=== PATIENT | male | born 1940 | race Caucasian/White ===

== ENCOUNTER 2017-01-27 09:15 | Emergency (ER) | payer MEDICARE, MEDICAID ==
[~2017-01-27] VITALS: Ht 175.3 cm; Wt 79.4 kg
[~2017-01-27 09:15] MED LIST: AMLO5TAB2 PO; ATOR40TA PO; BENA5TAB15 PO; CARB1TAB PO; DONE10TA4 PO; ENTA200T PO; ESCI10TA PO; FENO200C PO; FERR-58 PO; FINA5TAB4 PO; GLIM2TAB2 PO; GLIM4TAB PO; MEMA10TA PO; METF10002 PO; METO100T3 PO; MIRT7.5T10 PO; SITA50TA PO; TOLT4CAP PO; TRIA15CR3 TP; ZOLP5TAB7 PO
[2017-01-27] MEDS ORDERED: TDAP [DIPH/PERTUSSIS/TET] 0.5 ML VIAL IM ONE ×2 (09:37→10:00)
[2017-01-27 12:00] VITALS: BP 196/84
== END 2017-01-27 12:00 | disposition home or self-care (01) ==
LOC: ER 09:17
DX: S01.81XA Laceration without foreign body of other part of head, initial encounter (principal); S01.01XA Laceration without foreign body of scalp, initial encounter; S40.011A Contusion of right shoulder, initial encounter; I10 Essential (primary) hypertension; E11.9 Type 2 diabetes mellitus without complications; I25.10 Atherosclerotic heart disease of native coronary artery without angina pectoris; E78.00 Pure hypercholesterolemia, unspecified; F03.90 Unspecified dementia, unspecified severity, without behavioral disturbance, psychotic disturbance, mood disturbance, and anxiety; F39 Unspecified mood [affective] disorder; N40.0 Benign prostatic hyperplasia without lower urinary tract symptoms; G93.40 Encephalopathy, unspecified; W05.0XXA Fall from non-moving wheelchair, initial encounter; Y93.89 Activity, other specified; Y92.89 Other specified places as the place of occurrence of the external cause; Y99.9 Unspecified external cause status
CPT/HCPCS: 12013; 70450; 73030; 90471; 90715; 99284; A4606; A6402; Z7610

== ENCOUNTER 2017-04-26 11:02 | Inpatient (IN) | payer MEDICARE, MEDICAID ==
[~2017-04-26] VITALS: Ht 172.7 cm; Wt 65.8 kg
--- NOTE | 2017-04-26 11:12 | NUR ---
PT TO ER BED 11. FROM SNF. FOUND IN THE FLOOR. POSIBLE FALL OUT OF HIS WHEEL CHAIR. LAC APPROX 3CM NOTED. NO ACTIVE BLEEDING. HX OF PARKINSONS. UNWITNESSED FALL. NO OTHER OBVIOUS TRAUMA/. STABLE VITALS.
--- NOTE | 2017-04-26 11:13 | NUR ---
DR JACOBS AT BEDSIDE FOR EVAL.
[2017-04-26] MEDS ORDERED: TDAP [DIPH/PERTUSSIS/TET] 0.5 ML VIAL IM ONE ×2 (11:30→11:56)
--- NOTE | 2017-04-26 11:45 | NUR ---
PT TO RADIOLOGY FOR HEAD AND C SPINE CT SCAN VIA [facility].
--- NOTE | 2017-04-26 13:10 | NUR ---
CALLED [facility] FOR BLS TRANSPORT ETA 30 MINUTES
--- NOTE | 2017-04-26 13:45 | NUR ---
DR LALITHA CRAWFORD CALLED FOR DOCTOR REYNALDO, WANTS PATIENT TO BE ADMITTED
--- NOTE | 2017-04-26 13:46 | NUR ---
CANCELLED [facility]PON[facility]
--- NOTE | 2017-04-26 13:50 | NUR ---
PER DR DOTY, PATIENT TO BE ADMITTED TO PANEL
--- NOTE | 2017-04-26 13:56 | NUR ---
PAGED DR DRIVER FOR PANEL
[2017-04-26 13:58] LABS: BASOPHILS # (AUTO) 0.2 /CMM (0.0-0.2); BASOPHILS % (AUTO) 2.3 % (0.0-2.0); EOSINOPHILS # (AUTO) 0.1 /CMM (0.0-0.7); EOSINOPHILS % (AUTO) 1.4 % (0.0-6.0); HEMATOCRIT 39 % (39-51); HEMOGLOBIN 12.8 g/dL (13.5-17.5); LYMPHOCYTES # (AUTO) 2.4 /CMM (0.8-4.8); LYMPHOCYTES % (AUTO) 25.3 % (20.0-44.0); MEAN CORPUSCULAR HEMOGLOBIN 28 PG (26.0-33.0); MEAN CORPUSCULAR HGB CONC 33 g/dl (31.0-36.0); MEAN CORPUSCULAR VOLUME 84 fL (80-96); MONOCYTES # (AUTO) 0.9 /CMM (0.1-1.30); MONOCYTES % (AUTO) 9.4 % (2.0-12.0); NEUTROPHILS # (AUTO) 6.1 /CMM (1.8-8.9); NEUTROPHILS % (AUTO) 61.6 % (43.0-81.0); PLATELET COUNT (AUTO) 351 /CMM (150-450); RDW COEFFICIENT OF VARIATION 15.2 (11.5-15.0); WHITE BLOOD COUNT (AUTO) 9.7 K/uL (4.3-11.0)
[2017-04-26 14:06] LABS: CALCIUM, SERUM 9.2 mg/dL (8.5-10.1); CARBON DIOXIDE 32 mmol/L (21-32); CHLORIDE 103 mmol/L (98-107); CREATININE 0.9 mg/dL (0.6-1.3); GLUCOSE 84 mg/dL (74-106); POTASSIUM 4.2 mmol/L (3.5-5.1); SODIUM SERUM 138 mmol/L (136-145); UREA NITROGEN, BLOOD 19 mg/dL (7-18)
[2017-04-26 14:11] LABS: APPEARANCE,URINE Hazy (CLEAR); BILIRUBIN,URINE Negative (NEGATIVE); BLOOD, URINE Negative Ery/uL (NEGATIVE); COLOR,URINE Yellow (YELLOW); KETONES,URINE Negative (NEGATIVE); LEUKOCYTE ESTERASE ,URINE Small (NEGATIVE); NITRITE, URINE Positive (NEGATIVE); PROTEIN,URINE Negative (NEGATIVE); UGLUCOSE Negative (NEGATIVE); UROBILINOGEN,URINE 0.2 EU/dL (0.2)
[2017-04-26 14:12] LABS: ALANINE AMINOTRANSFERASE 6 U/L (12-78); ALBUMIN 3.5 g/dL (3.4-5.0); ALKALINE PHOSPHATASE 85 U/L (46-116); ASPARTATE AMINOTRANSFERASE 15 U/L (15-37); BILIRUBIN,TOTAL 0.3 mg/dL (0.2-1.0); TOTAL PROTEIN, SERUM 7.9 g/dL (6.4-8.2)
[2017-04-26 14:16] LABS: BACTERIA,URINE Many /HPF (None Seen); RBC,URINE 0-3 /HPF (0-2); SQUAMOUS EPITHELIAL CELL,UR Few /HPF (None Seen); WBC,URINE 20-40 /HPF (0-3)
[2017-04-26] MEDS ORDERED: CARB-93 PO (14:18)
[2017-04-26] MEDS ORDERED: CRAN3875 PO (14:18)
[2017-04-26] MEDS ORDERED: SITA100T PO (14:18)
[2017-04-26] MEDS ORDERED: MAGN400O6 PO (14:18)
[2017-04-26] MEDS ORDERED: HYDR-552 PO (14:18)
[2017-04-26] MEDS ORDERED: NA P133E RC (14:18)
[2017-04-26] MEDS ORDERED: ACET-868 PO (14:18)
[2017-04-26] MEDS ORDERED: METF850T2 PO (14:18)
[2017-04-26] MEDS ORDERED: NA PHOS,M-B/NA PHOS,DI-BA 1 EA ENEMA RC PRN (14:30)
[2017-04-26] MEDS ORDERED: HYDROCODONE/APAP 5/325MG 1 EACH TABLET PO PRN ×2 (14:30→17:30)
--- NOTE | 2017-04-26 14:52 | NUR ---
M/S 206-2
--- NOTE | 2017-04-26 15:15 | NUR ---
REPORT GIVEN TO LÓPEZ. PT AWAITING TRANSFER TO FLOOR.
[2017-04-26 15:35] VITALS: BP 134/71
--- NOTE | 2017-04-26 15:43 | NUR ---
MS/E COMMERCE PROJECT MANAGER admission Patient admitted from ER for s/p fall and right sided facial laceration. Patient is alert to self only, information for admission obtained from medical record from previous admission and paperwork from facility.
[2017-04-26] MEDS ORDERED: ONDANSETRON HCL/PF 4 MG/2 ML VIAL IVP PRN (17:30)
[2017-04-26] MEDS ORDERED: Z GUARD REMEDY 2 OZ OINT TP PRN ×2 (17:30→20:00)
[2017-04-26] MEDS ORDERED: ACETAMINOPHEN 325 MG TABLET PO PRN (17:30)
[2017-04-26] MEDS ORDERED: ZOLPIDEM TARTRATE 5 MG TABLET PO PRN (17:30)
[2017-04-26] MEDS ORDERED: MAG HYDROX/AL HYDROX/SIMETH 30 ML UDC PO PRN (17:30)
[2017-04-26] MEDS ORDERED: MAGNESIUM HYDROXIDE 30 ML UDC PO PRN (17:30)
[2017-04-26] MEDS ORDERED: IV SET PRIMARY PUMP SET 1 EA INFUS.SET MC ONE (18:11)
[2017-04-26] MEDS: MAGNESIUM HYDROXIDE 30 ML UDC PO SCH (18:17)
[2017-04-26] MEDS: ENTACAPONE 200 MG TABLET PO SCH (18:17)
[2017-04-26] MEDS: MEMANTINE HCL 5 MG TABLET PO SCH (18:17)
[2017-04-26] MEDS: CARBIDOPA/LEVODOPA 25/100 MG 1 UDTAB PO SCH (18:17)
[2017-04-26] MEDS: IV 1/2NS 1000 ML 1,000 ML IV PRN (18:18)
--- NOTE | 2017-04-26 19:30 | NUR ---
MS RN OPENING NOTES: PATIENT IN BED, AOX2, ON ROOM AIR, BREATHING EVEN AND UNLABORED, BREATH SOUNDS CLEAR TO AUSCULTATION. PATIENT KEEPS YELLING FOR HELP, AND STATES THAT HE WANTS TO GO HOME, AND THAT HE LIVES IN [place], IN A [place], WHICH IS CORRECT. HE ALSO STATES THAT THERE IS NOTHING WRONG WITH HIM, AND THAT HE IS "BEING RIPPED OFF". TRIED TO CALM PATIENT AND EXPLAINED PLAN OF TREATMENT. PIV OVER L HAND G 18 INTACT AND PATENT, INFUSING WELL WITH 1/2 NS RUNNING AT 75 ML/HR. PROVIDED FOR COMFORT AND SAFETY, BED IN LOWEST AND LOCKED POSITION, SIDERAILS UP X3. BED ALARMS ON. WILL CONT TO MONITOR.
[2017-04-26 22:00] VITALS: BP 151/81
--- NOTE | 2017-04-26 22:12 | NUR ---
RN NOTES: SPOKE TO DR CHAMPION OVER PHONE TO INQUIRE ABOUT NEED FOR ACCUCHECKS PT HAS HX OF DM. ORDERS MADE FOR ACHS ACCUCHECKS WITH MILD SLIDING SCALE, DIET CHANGED TO CCHO, AND HGBA1C IN THE AM. NOTED AND CARRIED OUT.
[2017-04-26] MEDS: ATORVASTATIN 40 MG TABLET PO SCH (22:18)
[2017-04-26] MEDS: BLOOD SUGAR DIAGNOSTIC 1 EACH STRIP IN SCH (22:18)
--- NOTE | 2017-04-26 22:18 | NUR ---
RN NOTES: BLOOD SUGAR CHECKED AT 129 MG/DL, NO INSULIN COVERAGE NEEDED FOR THIS TIME. WILL CONT TO MONITOR.
[2017-04-26] MEDS: DONEPEZIL 5 MG TABLET PO SCH (22:19)
[2017-04-26] MEDS: MIRTAZAPINE 15 MG TABLET PO SCH (22:19)
[2017-04-26] MEDS ORDERED: DEXTROSE 50%-WATER 50 ML DISP.SYRIN IV PRN (22:30)
--- NOTE | 2017-04-26 23:00 | NUR ---
RN NOTES: PT APPEARS MORE CALM NOW AFTER LIGHT SNACK WAS GIVEN, PT NO LONGER YELLING. WILL CONT TO MONITOR.
--- NOTE | 2017-04-27 03:15 | NUR ---
RN NOTES: NOTED THAT ADMIT TO ORDER INITIALLY FOR PATIENT WAS FOR TELE FOR CLOSED HEAD INJURY. PAGED DR DUMONT .
--- NOTE | 2017-04-27 04:26 | NUR ---
RN NOTES: RECEIVED CALL BACK FROM DR DUMONT, REPORTED TO MD THAT VS ARE STABLE, NEURO CHECKS BEING DONE FREQUENTLY ON HIM. PATIENT APPEARS CALM AND IN NO DISTRESS. PER MD, OK TO KEEP IN [facility].
[2017-04-27] MEDS: IV 1/2NS 1000 ML 1,000 ML IV PRN ×2 (05:52→21:36)
[2017-04-27 06:28] LABS: BASOPHILS % (AUTO) 0.4 % (0.0-2.0); EOSINOPHILS # (AUTO) 0.1 /CMM (0.0-0.7); EOSINOPHILS % (AUTO) 1.3 % (0.0-6.0); HEMATOCRIT 34 % (39-51); HEMOGLOBIN 11.5 g/dL (13.5-17.5); LYMPHOCYTES # (AUTO) 2.2 /CMM (0.8-4.8); LYMPHOCYTES % (AUTO) 23.9 % (20.0-44.0); MEAN CORPUSCULAR HEMOGLOBIN 29 PG (26.0-33.0); MEAN CORPUSCULAR HGB CONC 34 g/dl (31.0-36.0); MEAN CORPUSCULAR VOLUME 85 fL (80-96); MONOCYTES # (AUTO) 0.8 /CMM (0.1-1.30); MONOCYTES % (AUTO) 8.8 % (2.0-12.0); NEUTROPHILS # (AUTO) 6.1 /CMM (1.8-8.9); NEUTROPHILS % (AUTO) 65.6 % (43.0-81.0); PLATELET COUNT (AUTO) 327 /CMM (150-450); RDW COEFFICIENT OF VARIATION 16.6 (11.5-15.0); RED BLOOD CELL COUNT(AUTO) 4.04 MIL/uL (4.5-6.0); WHITE BLOOD COUNT (AUTO) 9.3 K/uL (4.3-11.0)
--- NOTE | 2017-04-27 06:46 | NUR ---
MS RN CLOSING NOTES: PATIENT IN BED, AOX2, ON ROOM AIR, BREATHING EVEN AND UNLABORED. APPEARS CALM AND IN NO DISTRESS. DENIES PAIN. WAS ABLE TO SLEEP WELL THROUGH THE SHIFT. PIV OVER L HAND G 18 INTACT AND INFUSING WELL WITH 1/2 NS RUNNING AT 75 ML/HR. BLOOD SUGAR CHECKED AT 104 MG/DL. PROVIDED FOR COMFORT AND SAFETY. BED IN LOWEST AND LOCKED POSITION, SIDERAILS UP X3, BED ALARMS ON. NO ACUTE CHANGE IN CONDITION NOTED THROUGH SHIFT. WILL ENDORSE TO AM RN FOR JORDAN.
[2017-04-27] MEDS: BLOOD SUGAR DIAGNOSTIC 1 EACH STRIP IN SCH ×4 (06:54→21:55)
[2017-04-27 07:04] LABS: CALCIUM, SERUM 8.7 mg/dL (8.5-10.1); CARBON DIOXIDE 29 mmol/L (21-32); CHLORIDE 104 mmol/L (98-107); CREATININE 0.8 mg/dL (0.6-1.3); GLUCOSE 95 mg/dL (74-106); MAGNESIUM 1.7 mg/dL (1.8-2.4); PHOSPHORUS 3.6 mg/dL (2.5-4.9); POTASSIUM 4.2 mmol/L (3.5-5.1); SODIUM SERUM 141 mmol/L (136-145); UREA NITROGEN, BLOOD 18 mg/dL (7-18)
--- NOTE | 2017-04-27 07:54 | NUR ---
MS/RN Patient received Patient received from p d driver. Sleeping, appears in no distress, call light within reach of hand. Will continue to monitor and ensure safety.
[2017-04-27 08:00] VITALS: BP 148/80
[2017-04-27] MEDS: MAGNESIUM HYDROXIDE 30 ML UDC PO SCH ×2 (08:46→17:31)
[2017-04-27] MEDS: ENTACAPONE 200 MG TABLET PO SCH ×3 (08:47→17:31)
[2017-04-27] MEDS: CARBIDOPA/LEVODOPA 25/100 MG 1 UDTAB PO SCH ×3 (08:47→17:31)
[2017-04-27] MEDS: MEMANTINE HCL 5 MG TABLET PO SCH ×2 (08:47→17:32)
[2017-04-27] MEDS: FINASTERIDE (5 MG) 5 MG TABLET PO SCH (08:47)
[2017-04-27] MEDS: PANTOPRAZOLE 40 MG TABLET.DR PO SCH (08:47)
--- NOTE | 2017-04-27 08:57 | NUR ---
MS/RN Medications Able to swallow morning medications without crushing.
[2017-04-27] MEDS ORDERED: Medication Not On Formulary EA (Cran/Vitc/Mannose/Inulin/Brom (Uti-Stat Liquid) 30 ML) PO SCH (09:00)
--- NOTE | 2017-04-27 10:24 | NUR ---
MS/RN S/B Dr Gonzalez Seen by Dr Gonzalez - continue with current medications, needs order for IVAB for UTI.
[2017-04-27] MEDS ORDERED: CEFTRIAXONE 1 G VIAL IM SCH (10:30)
--- NOTE | 2017-04-27 10:36 | NUR ---
MS/RN S/B Dr Sauceda Seen by Dr Sohail leblanc ordered along with labs for tomorrow.
[2017-04-27] MEDS ORDERED: Magnesium 1GM/D5W 100ML PREMIX 100 ML IV SCH (11:00)
[2017-04-27] MEDS ORDERED: SECONDARY IV SET 1 EA INFUS.SET MC ONE (11:07)
[2017-04-27] MEDS ORDERED: SET RED CAP 1 EA INFUS.SET MC ONE (11:07)
[2017-04-27] MEDS: Magnesium 1GM/D5W 100ML PREMIX 100 ML IV SCH ×2 (11:18→12:34)
[2017-04-27] MEDS: CEFTRIAXONE 1 G in IV D5W 50 ML IV SCH (12:34)
[2017-04-27] MEDS: INSULIN REGULAR, HUMAN 100 UNIT/ML 3 ML VIAL SQ PRN ×2 (12:35→21:36)
--- NOTE | 2017-04-27 13:00 | NUR ---
MS/RN Mag level Mag level 1.7, replaced with 2gm magnesium IVPB.
[2017-04-27 16:00] VITALS: BP 103/60
--- NOTE | 2017-04-27 18:31 | NUR ---
MS/RN End note No changes in care at this time, to remain in hospital for three days until returning to [facility]. Will endorse to track announcer.
--- NOTE | 2017-04-27 19:29 | NUR ---
blood sugar, [id number]: went to pt's room during changed of shift around 1914, pt responding by inflicting local pain but when asked to open his eyes, pt is unable to do so, last blood sugar at 1730 was 77, recheck blood sugar and found to be 55, d50 administered right away at 1920, contacted pharmacy because unable to scan barcode, talked to mirna from pharmacy and stated he will bring the barcode, will rechecked pt's blood sugar after 15mins Addendum: 04/27/17 at 2049 by MARCUS GARCIA RN CORRECTION OF ENTRY FOR BLOOD SUGAR, 56
--- NOTE | 2017-04-27 19:35 | NUR ---
MS RN BLOOD SUGAR RECHECKED BLOOD SUGAR, NOW AT 224
--- NOTE | 2017-04-27 20:00 | NUR ---
MS RN NOTES PT NOTED TO HAVE A RIGHT UPPER CHEST WALL DEFIBRILLATOR.
[2017-04-27 20:01] VITALS: BP 126/73
[2017-04-27 20:48] VITALS: BP 126/73
[2017-04-27] MEDS: MIRTAZAPINE 15 MG TABLET PO SCH (21:35)
[2017-04-27] MEDS: ATORVASTATIN 40 MG TABLET PO SCH (21:35)
[2017-04-27] MEDS: DONEPEZIL 5 MG TABLET PO SCH (21:35)
--- NOTE | 2017-04-27 21:54 | NUR ---
MS RN BLOOD SUGAR BLOOD SUGAR WAS 109, NO INSULIN WAS NEEDED AT THIS TIME. WILL CONTINUE TO MONITOR FOR S/S OF HYPO/HYPER GLYCEMIA
[2017-04-28] MEDS: BLOOD SUGAR DIAGNOSTIC 1 EACH STRIP IN SCH ×4 (06:40→22:53)
[2017-04-28] MEDS: INSULIN REGULAR, HUMAN 100 UNIT/ML 3 ML VIAL SQ PRN (06:40)
--- NOTE | 2017-04-28 06:41 | NUR ---
MS RN BLOOD SUGAR 0630 BLOOD SUGAR WAS 99, NO INSULIN NEEDED PER SLIDING SCALE
[2017-04-28 06:46] LABS: BASOPHILS % (AUTO) 0.5 % (0.0-2.0); EOSINOPHILS # (AUTO) 0.1 /CMM (0.0-0.7); EOSINOPHILS % (AUTO) 1.3 % (0.0-6.0); HEMATOCRIT 35 % (39-51); HEMOGLOBIN 11.8 g/dL (13.5-17.5); LYMPHOCYTES # (AUTO) 2.4 /CMM (0.8-4.8); LYMPHOCYTES % (AUTO) 30.9 % (20.0-44.0); MEAN CORPUSCULAR HEMOGLOBIN 29 PG (26.0-33.0); MEAN CORPUSCULAR HGB CONC 34 g/dl (31.0-36.0); MEAN CORPUSCULAR VOLUME 85 fL (80-96); MONOCYTES # (AUTO) 0.8 /CMM (0.1-1.30); MONOCYTES % (AUTO) 9.9 % (2.0-12.0); NEUTROPHILS # (AUTO) 4.4 /CMM (1.8-8.9); NEUTROPHILS % (AUTO) 57.4 % (43.0-81.0); PLATELET COUNT (AUTO) 316 /CMM (150-450); RDW COEFFICIENT OF VARIATION 16.1 (11.5-15.0); RED BLOOD CELL COUNT(AUTO) 4.12 MIL/uL (4.5-6.0); WHITE BLOOD COUNT (AUTO) 7.6 K/uL (4.3-11.0)
--- NOTE | 2017-04-28 06:56 | NUR ---
MS RN CLOSING NOTES: PATIENT IN BED, AOX2 RESPONSIVE TO PAINFUL STIMULI, ON ROOM AIR, BREATHING EVEN AND UNLABORED. APPEARS CALM AND IN NO DISTRESS. WAS ABLE TO SLEEP WELL THROUGH THE SHIFT. PIV OVER L HAND G 18 INTACT AND INFUSING WELL WITH 1/2 NS RUNNING AT 75 ML/HR. PROVIDED FOR COMFORT AND SAFETY. BED IN LOWEST AND LOCKED POSITION, SIDERAILS UP X3, BED ALARMS ON. NO ACUTE CHANGE IN CONDITION NOTED THROUGH SHIFT. WILL ENDORSE TO AM RN
[2017-04-28 07:09] LABS: CALCIUM, SERUM 8.7 mg/dL (8.5-10.1); CARBON DIOXIDE 28 mmol/L (21-32); CHLORIDE 105 mmol/L (98-107); CREATININE 0.8 mg/dL (0.6-1.3); GLUCOSE 101 mg/dL (74-106); SODIUM SERUM 142 mmol/L (136-145); UREA NITROGEN, BLOOD 13 mg/dL (7-18)
--- NOTE | 2017-04-28 07:35 | NUR ---
RN MS NOTES PATIENT IN BED, ALERT AND RESPONSIVE, STATED HE'S FINE, NO S/SX OF DISTRESS NOTED, IVF INFUSING, NEEDS ATTENDED AND MET, SAFETY MEASURES IN PLACED, CALL LIGHT WITHIN REACH, WILL CONTINUE TO MONITOR.
[2017-04-28 08:00] VITALS: BP 144/77
[2017-04-28] MEDS: ENTACAPONE 200 MG TABLET PO SCH ×3 (08:26→16:22)
[2017-04-28] MEDS: PANTOPRAZOLE 40 MG TABLET.DR PO SCH (08:26)
[2017-04-28] MEDS: MEMANTINE HCL 5 MG TABLET PO SCH ×2 (08:26→16:22)
[2017-04-28] MEDS: MAGNESIUM HYDROXIDE 30 ML UDC PO SCH ×2 (08:26→16:22)
[2017-04-28] MEDS: CARBIDOPA/LEVODOPA 25/100 MG 1 UDTAB PO SCH ×3 (08:26→16:22)
[2017-04-28] MEDS: FINASTERIDE (5 MG) 5 MG TABLET PO SCH (08:26)
[2017-04-28] MEDS ORDERED: CEFTRIAXONE 1 G VIAL IV SCH (10:30)
[2017-04-28] MEDS: IV 1/2NS 1000 ML 1,000 ML IV PRN (10:49)
[2017-04-28] MEDS: CEFTRIAXONE 1 G in IV D5W 50 ML IV SCH (10:51)
--- NOTE | 2017-04-28 11:00 | NUR ---
SIOBHAN ROSSI NOTES REMINDED DR. CHAMPION REGARDING STROKE PREVENTION, PER , OK. Addendum: 04/28/17 at 1933 by PRECIOUS TOMAS RN ADDENDUM: PER , ORDER [facility] TO DOSE, ORDER NOTED AND CARRIED OUT.
[2017-04-28] MEDS: PIPERACILLIN /TAZOBACTAM 3.375 G in IV D5W 50 ML IV SCH ×2 (13:33→17:28)
--- NOTE | 2017-04-28 13:40 | NUR ---
RN MS NOTES PATIENT OBSERVED TO BE COUGHING WITH HIS LUNCH MEALS, MEAL STOPPED, ASPIRATION PRECAUTION ENSURE, INFORMED DR. CHAMPION AND RECEIVED NEW ORDER TO DOWNGRADE MEAL AND ST EVAL, AND BOOST QD, ORDER NOTED AND CARRIED OUT. WILL CONTINUE TO MONITOR.
[2017-04-28] MEDS ORDERED: SECONDARY IV SET 1 EA INFUS.SET MC ONE (14:01)
[2017-04-28 16:00] VITALS: BP 103/54
[2017-04-28] MEDS: BOOST GLUCOSE CONTROL VANILLA 237 ML BOX PO SCH (17:43)
--- NOTE | 2017-04-28 19:05 | NUR ---
RN MS NOTES PATIENT IN BED, TOLERATED DINNER WITH ASSISTANCE, ASPIRATION PRECAUTION OBSERVED, GIVEN BOOST AND TOLERATED 100%, NO DISTRESS NOTED, IVF INFUSING, TURNED AND REPOSITIONED, NEEDS ATTENDED AND MET, CALL LIGHT WITHIN REACH, WILL ENDORSE TO PROCESS CHECKER FOR JORDAN.
--- NOTE | 2017-04-28 19:20 | NUR ---
MS RN NOTES RECEIVED PT IN BED, ASLEEP AT THIS TIME, AROUSES EASILY. NO DISTRESS, NO SOB. A/O X 2 VERBALLY RESPONSIVE. IV SITE ON RIGHT HAND INTACT AND PATENT, NO S/S OF INFILTRATION NOTED. ALL NEEDS ATTENDED. NO S/S OF HYPO/ HYPERGLYCEMIA NOTED. SAFETY PRECAUTIONS OBSERVED. WILL CONTINUE TO MONITOR.
[2017-04-28 20:00] VITALS: BP 128/73
[2017-04-28 22:00] VITALS: BP 128/73
[2017-04-28] MEDS: MIRTAZAPINE 15 MG TABLET PO SCH (22:54)
[2017-04-28] MEDS: DONEPEZIL 5 MG TABLET PO SCH (22:54)
[2017-04-28] MEDS: ATORVASTATIN 40 MG TABLET PO SCH (22:54)
[2017-04-28] MEDS: ENOXAPARIN SODIUM 40 MG/0.4 ML DISP.SYRIN SQ SCH (22:55)
[2017-04-29] MEDS: PIPERACILLIN /TAZOBACTAM 3.375 G in IV D5W 50 ML IV SCH ×4 (00:09→17:11)
[2017-04-29] MEDS: IV 1/2NS 1000 ML 1,000 ML IV PRN (06:13)
[2017-04-29] MEDS: BLOOD SUGAR DIAGNOSTIC 1 EACH STRIP IN SCH ×4 (06:14→22:37)
--- NOTE | 2017-04-29 07:18 | NUR ---
MS RN NOTES PT IN BED, ASLEEP AT THIS TIME, AROUSES EASILY. NO DISTRESS, NO SOB. A/O X 2 VERBALLY RESPONSIVE. IV SITE ON RIGHT HAND INTACT AND PATENT, NO S/S OF INFILTRATION NOTED. ALL NEEDS ATTENDED. NO S/S OF HYPO/ HYPERGLYCEMIA NOTED. SAFETY PRECAUTIONS OBSERVED. WILL ENDORSE TO NEXT SHIFT FOR JORDAN.
--- NOTE | 2017-04-29 07:30 | NUR ---
AM RN NOTE Received patient sleeping comfortably in his bed, no acute distress noted. No SOB noted resp even and non-labored. IV site intact and patent. Bed in low locked position. Will continue to monitor.
[2017-04-29 08:08] VITALS: BP 145/68
[2017-04-29] MEDS: FINASTERIDE (5 MG) 5 MG TABLET PO SCH (08:14)
[2017-04-29] MEDS: ENTACAPONE 200 MG TABLET PO SCH ×3 (08:14→17:09)
[2017-04-29] MEDS: MEMANTINE HCL 5 MG TABLET PO SCH ×2 (08:14→17:09)
[2017-04-29] MEDS: PANTOPRAZOLE 40 MG TABLET.DR PO SCH (08:14)
[2017-04-29] MEDS: MAGNESIUM HYDROXIDE 30 ML UDC PO SCH ×2 (08:15→17:09)
[2017-04-29] MEDS: CARBIDOPA/LEVODOPA 25/100 MG 1 UDTAB PO SCH ×3 (08:15→17:09)
[2017-04-29] MEDS: BOOST GLUCOSE CONTROL VANILLA 237 ML BOX PO SCH (09:07)
[2017-04-29 16:02] VITALS: BP 109/57
--- NOTE | 2017-04-29 17:00 | NUR ---
AM RN NOTE Patient pulled his IV site, re-inserted new site on L hand #22.
--- NOTE | 2017-04-29 18:45 | NUR ---
AM RN NOTE Patient resting in his bed, no acute distress noted. IV site intact and patent. Will endorse care to next shift.
--- NOTE | 2017-04-29 19:15 | NUR ---
MS RN NOTES RECEIVED PT IN BED, AWAKE, VERBALLY RESPONSIVE. NO DISTRESS, NO SOB. A/O X 2 VERBALLY RESPONSIVE. IV SITE ON LEFT HAND INFILTRATED , REMOVED, PRESSURE APPLIED. NO BLEEDING AT THIS TIME. INSERTED IV ON LEFT HAND G 20, X 1 ATTEMPT. WITH GOOD VENOUS RETURN. IVF INFUSING WELL. ALL NEEDS ATTENDED. NO S/S OF HYPO/ HYPERGLYCEMIA NOTED. SAFETY PRECAUTIONS OBSERVED. WILL CONTINUE TO MONITOR.
[2017-04-29 20:00] VITALS: BP 124/74
--- NOTE | 2017-04-29 21:58 | NUR ---
DONEZEPIL 5 MG, 1 TABLET ONLY, TAKEN FROM THE [facility].
[2017-04-29 22:00] VITALS: BP 124/74
--- NOTE | 2017-04-29 22:00 | NUR ---
DONEZEPIL 1 TAB = 5MG TAKEN FROM [facility].
[2017-04-29] MEDS: DONEPEZIL 5 MG TABLET PO SCH (22:30)
[2017-04-29] MEDS: ATORVASTATIN 40 MG TABLET PO SCH (22:30)
[2017-04-29] MEDS: MIRTAZAPINE 15 MG TABLET PO SCH (22:31)
[2017-04-29] MEDS: INSULIN REGULAR, HUMAN 100 UNIT/ML 3 ML VIAL SQ PRN (22:42)
[2017-04-29] MEDS: ENOXAPARIN SODIUM 40 MG/0.4 ML DISP.SYRIN SQ SCH (22:43)
[2017-04-30] MEDS: PIPERACILLIN /TAZOBACTAM 3.375 G in IV D5W 50 ML IV SCH ×3 (00:34→12:15)
[2017-04-30] MEDS: BLOOD SUGAR DIAGNOSTIC 1 EACH STRIP IN SCH ×2 (06:21→12:15)
[2017-04-30] MEDS: IV 1/2NS 1000 ML 1,000 ML IV PRN (06:29)
[2017-04-30] MEDS: PANTOPRAZOLE 40 MG TABLET.DR PO SCH (06:32)
--- NOTE | 2017-04-30 06:57 | NUR ---
MS RN NOTES PT IN BED, AWAKE, VERBALLY RESPONSIVE. WATCHING TV AT THIS TIME. NO DISTRESS, NO SOB. A/O X 2 VERBALLY RESPONSIVE. IV SITE ON RIGHT HAND INTACT AND PATENT, NO S/S OF INFILTRATION NOTED. IVF INFUSING WELL. ALL NEEDS ATTENDED. NO S/S OF HYPO/ HYPERGLYCEMIA NOTED. SAFETY PRECAUTIONS OBSERVED. WILL ENDORSE TO NEXT SHIFT FOR JORDAN. .
[2017-04-30 08:00] VITALS: BP 165/93
[2017-04-30] MEDS: MAGNESIUM HYDROXIDE 30 ML UDC PO SCH (08:15)
[2017-04-30] MEDS: CARBIDOPA/LEVODOPA 25/100 MG 1 UDTAB PO SCH ×2 (08:15→12:14)
[2017-04-30] MEDS: BOOST GLUCOSE CONTROL VANILLA 237 ML BOX PO SCH (08:15)
[2017-04-30] MEDS: ENTACAPONE 200 MG TABLET PO SCH ×2 (08:15→12:14)
[2017-04-30] MEDS: FINASTERIDE (5 MG) 5 MG TABLET PO SCH (08:15)
[2017-04-30] MEDS: MEMANTINE HCL 5 MG TABLET PO SCH (08:15)
[2017-04-30] MEDS: INSULIN REGULAR, HUMAN 100 UNIT/ML 3 ML VIAL SQ PRN (12:16)
--- NOTE | 2017-04-30 12:37 | NUR ---
AM RN NOTE Discharge pt to [facility] per Dr. Sauceda. Received call from Bib ELKINS) that P/U time by ambulance @ 1500. Called [facility] spoke with Pauline (SIOBHAN) report given on pt.
--- NOTE | 2017-04-30 15:35 | NUR ---
AM RN NOTE Patient awake, A/O X1 confused. Report given and V/S stable, checked by EMT's. HL & ID band removed. Belongings endorsed to EMT's. Pt discharged/ left unit at this time in a gurney as accompanied by 2 EMT's.
== END 2017-04-30 15:39 | DRG 871 ==
LOC: ER 11:04 → MEDSG2 14:58
PROVIDERS: ADMIT Legal Medicine; ATTEND Legal Medicine
PROC: 0HQ0XZZ Repair Scalp Skin, External Approach (ICD-10-PCS; principal; 2017-04-26)
DX: A41.9 Sepsis, unspecified organism (principal); G93.41 Metabolic encephalopathy; N39.0 Urinary tract infection, site not specified; E11.9 Type 2 diabetes mellitus without complications; E78.5 Hyperlipidemia, unspecified; F03.90 Unspecified dementia, unspecified severity, without behavioral disturbance, psychotic disturbance, mood disturbance, and anxiety; G20 Parkinson's disease; Z86.73 Personal history of transient ischemic attack (TIA), and cerebral infarction without residual deficits; Y93.9 Activity, unspecified; Y92.129 Unspecified place in nursing home as the place of occurrence of the external cause; W05.0XXA Fall from non-moving wheelchair, initial encounter; M19.90 Unspecified osteoarthritis, unspecified site; R26.9 Unspecified abnormalities of gait and mobility; B96.20 Unspecified Escherichia coli [E. coli] as the cause of diseases classified elsewhere; R29.6 Repeated falls; N40.1 Benign prostatic hyperplasia with lower urinary tract symptoms; I25.10 Atherosclerotic heart disease of native coronary artery without angina pectoris; I10 Essential (primary) hypertension; S01.81XA Laceration without foreign body of other part of head, initial encounter; Z79.899 Other long term (current) drug therapy; G89.29 Other chronic pain; R65.20 Severe sepsis without septic shock; F07.81 Postconcussional syndrome
CPT/HCPCS: 36415; 70450-TC; 71010-TC; 72125-TC; 80048-TC; 80076-TC; 81000-TC; 82962-TC; 83735-TC; 84100-TC; 85025-TC; 87081-TC; 87086-TC; 87186-TC; 90715; 92521; 97001-TC; A4606; A6402; J0696; J1650; J1815; J2543; J3475; J3490; J7060; Z7610

== ENCOUNTER 2017-05-31 19:13 | Emergency (ER) | payer MEDICARE, MEDICAID ==
[~2017-05-31] VITALS: Ht 175.3 cm; Wt 77.1 kg
[~2017-05-31 19:13] MED LIST changes: +ACET-868 PO; -AMLO5TAB2 PO; -BENA5TAB15 PO; +CARB-93 PO; -CARB1TAB PO; +CRAN3875 PO; -ESCI10TA PO; -FENO200C PO; -FERR-58 PO; -GLIM2TAB2 PO; -GLIM4TAB PO; +HYDR-552 PO; +MAGN400O6 PO; -METF10002 PO; +METF850T2 PO; -METO100T3 PO; +NA P133E RC; +SITA100T PO; -SITA50TA PO; -TOLT4CAP PO; -TRIA15CR3 TP; -ZOLP5TAB7 PO
--- NOTE | 2017-05-31 19:21 | NUR ---
77 YO MALE BB AMBULANCE FROM SNF. PT IS ALERT, STATES HE HAD A MECHANICAL FALL OFF OF HIS WHEELCHAIR. PT DS TO ER BED BY EMS, PT GOWNED, PLACED ON COMPUTER SYSTEMS ARCHITECT. NOTED RIGHT EYE BROW LACERATION. AWAITING ORDERS FORM PROVIDER, WILL CONITNUE TO MONITOR
--- NOTE | 2017-05-31 19:40 | NUR ---
20G LEFT FA IV STARTED, BLOOD SAMPLE OBTAINED AND SENT TO LAB
[2017-05-31 19:49] LABS: BASOPHILS # (AUTO) 0.1 /CMM (0.0-0.2); BASOPHILS % (AUTO) 1.2 % (0.0-2.0); EOSINOPHILS # (AUTO) 0.1 /CMM (0.0-0.7); EOSINOPHILS % (AUTO) 1.9 % (0.0-6.0); HEMATOCRIT 38 % (39-51); HEMOGLOBIN 12.3 g/dL (13.5-17.5); LYMPHOCYTES # (AUTO) 2.5 /CMM (0.8-4.8); LYMPHOCYTES % (AUTO) 34.9 % (20.0-44.0); MEAN CORPUSCULAR HEMOGLOBIN 28 PG (26.0-33.0); MEAN CORPUSCULAR HGB CONC 32 g/dl (31.0-36.0); MEAN CORPUSCULAR VOLUME 85 fL (80-96); MONOCYTES # (AUTO) 0.5 /CMM (0.1-1.30); MONOCYTES % (AUTO) 7.2 % (2.0-12.0); NEUTROPHILS # (AUTO) 3.8 /CMM (1.8-8.9); NEUTROPHILS % (AUTO) 54.8 % (43.0-81.0); PLATELET COUNT (AUTO) 359 /CMM (150-450); RDW COEFFICIENT OF VARIATION 16.5 (11.5-15.0); RED BLOOD CELL COUNT(AUTO) 4.44 MIL/uL (4.5-6.0)
--- NOTE | 2017-05-31 20:05 | NUR ---
PT TRANSPORTED TO CT VIA GURNEY BY RADIOLOGY TEAM
[2017-05-31 20:09] LABS: CALCIUM, SERUM 9.2 mg/dL (8.5-10.1); CARBON DIOXIDE 25 mmol/L (21-32); CHLORIDE 102 mmol/L (98-107); GLUCOSE 92 mg/dL (74-106); POTASSIUM 4.9 mmol/L (3.5-5.1); SODIUM SERUM 140 mmol/L (136-145); UREA NITROGEN, BLOOD 21 mg/dL (7-18)
[2017-05-31 20:33] LABS: INR 0.96 (0.87-1.13); PROTHROMBIN TIME 10.3 SECS (9.5-12.7)
--- NOTE | 2017-05-31 21:40 | NUR ---
CALLED [facility] FOR TRANSPORT ETA OF 15 MINS WAS GIVEN.
[2017-05-31 21:49] VITALS: BP 143/80
--- NOTE | 2017-05-31 21:49 | NUR ---
Patient discharged to home in stable condition. Written and verbal after care instructions given. Patient verbalizes understanding of instruction.IV removed. Catheter intact and site benign. Pressure and 4x4 applied to site. No bleeding noted. PT ambulatory with a steady gait VITAL SIGNS WITHIN NORMAL LIMITS.
== END 2017-05-31 21:50 | disposition home or self-care (01) ==
LOC: ER 19:14
DX: S05.31XA Ocular laceration without prolapse or loss of intraocular tissue, right eye, initial encounter (principal); S01.81XA Laceration without foreign body of other part of head, initial encounter; R79.1 Abnormal coagulation profile; E11.9 Type 2 diabetes mellitus without complications; E78.00 Pure hypercholesterolemia, unspecified; Z98.890 Other specified postprocedural states; F03.90 Unspecified dementia, unspecified severity, without behavioral disturbance, psychotic disturbance, mood disturbance, and anxiety; G20 Parkinson's disease; I10 Essential (primary) hypertension; I25.10 Atherosclerotic heart disease of native coronary artery without angina pectoris; N40.0 Benign prostatic hyperplasia without lower urinary tract symptoms; J32.9 Chronic sinusitis, unspecified; Z95.0 Presence of cardiac pacemaker; F39 Unspecified mood [affective] disorder; W05.0XXA Fall from non-moving wheelchair, initial encounter; Y93.89 Activity, other specified; Y92.89 Other specified places as the place of occurrence of the external cause; Y99.9 Unspecified external cause status
CPT/HCPCS: 12011; 36415; 70450; 70486; 80048; 85025; 85730; 87081; 93005; 99285; A4606; Z7610

== ENCOUNTER 2018-01-24 16:31 | Inpatient (IN) | payer MEDICARE, MEDICAID ==
[~2018-01-24] VITALS: Ht 172.7 cm; Wt 61.7 kg
[~2018-01-24 16:31] MED LIST changes: +DONE10TA11 PO; -DONE10TA4 PO
[2018-01-24] MEDS ORDERED: IV NS 0.9% 1,000 ML BAG IV ONE (17:00)
[2018-01-24 17:03] LABS: BASOPHILS % (AUTO) 0.6 % (0.0-2.0); EOSINOPHILS # (AUTO) 0.1 /CMM (0.0-0.7); HEMATOCRIT 30 % (39-51); HEMOGLOBIN 10.4 g/dL (13.5-17.5); LYMPHOCYTES # (AUTO) 2.2 /CMM (0.8-4.8); LYMPHOCYTES % (AUTO) 27.4 % (20.0-44.0); MEAN CORPUSCULAR HEMOGLOBIN 29 PG (26.0-33.0); MEAN CORPUSCULAR HGB CONC 34 g/dl (31.0-36.0); MEAN CORPUSCULAR VOLUME 86 fL (80-96); MONOCYTES # (AUTO) 0.7 /CMM (0.1-1.30); MONOCYTES % (AUTO) 8.3 % (2.0-12.0); NEUTROPHILS # (AUTO) 4.9 /CMM (1.8-8.9); NEUTROPHILS % (AUTO) 62.7 % (43.0-81.0); PLATELET COUNT (AUTO) 364 /CMM (150-450); RDW COEFFICIENT OF VARIATION 16.2 (11.5-15.0); RED BLOOD CELL COUNT(AUTO) 3.55 MIL/uL (4.5-6.0); WHITE BLOOD COUNT (AUTO) 7.9 K/uL (4.3-11.0)
[2018-01-24 17:11] LABS: CALCIUM, SERUM 9.1 mg/dL (8.5-10.1); CARBON DIOXIDE 29 mmol/L (21-32); CHLORIDE 103 mmol/L (98-107); CREATININE 0.8 mg/dL (0.6-1.3); GLUCOSE 75 mg/dL (74-106); POTASSIUM 4.4 mmol/L (3.5-5.1); SODIUM SERUM 141 mmol/L (136-145); UREA NITROGEN, BLOOD 23 mg/dL (7-18)
[2018-01-24 17:17] LABS: ALANINE AMINOTRANSFERASE 14 U/L (12-78); ALKALINE PHOSPHATASE 79 U/L (46-116); ASPARTATE AMINOTRANSFERASE 19 U/L (15-37); BILIRUBIN,DIRECT 0.1 mg/dL (0.0-0.2); BILIRUBIN,TOTAL 0.2 mg/dL (0.2-1.0); TOTAL PROTEIN, SERUM 7.3 g/dL (6.4-8.2)
[2018-01-24 17:19] LABS: TROPONIN I 0.092 ng/mL (0.00-0.056)
[2018-01-24] MEDS ORDERED: IV NS 0.9% 1,000 ML IV ONE ×3 (19:30→20:30)
[2018-01-24] MEDS ORDERED: ASPI-1169 PO (19:32)
[2018-01-24] MEDS ORDERED: BISA10SU8 RC (19:32)
[2018-01-24] MEDS ORDERED: DOCU100C36 PO (19:32)
[2018-01-24 21:11] LABS: APPEARANCE,URINE SL CLOUDY (CLEAR); BILIRUBIN,URINE NEGATIVE (NEGATIVE); BLOOD, URINE NEGATIVE Ery/uL (NEGATIVE); COLOR,URINE YELLOW (YELLOW); KETONES,URINE NEGATIVE (NEGATIVE); LEUKOCYTE ESTERASE ,URINE TRACE (NEGATIVE); NITRITE, URINE POSITIVE (NEGATIVE); PROTEIN,URINE NEGATIVE (NEGATIVE); UGLUCOSE NEGATIVE (NEGATIVE); UROBILINOGEN,URINE 0.2 EU/dL (0.2)
[2018-01-24 21:27] LABS: RBC,URINE 0-2 /HPF (0-2)
[2018-01-24 21:28] LABS: BACTERIA,URINE Many /HPF (None Seen); SQUAMOUS EPITHELIAL CELL,UR Few /HPF (None Seen)
[2018-01-24] MEDS ORDERED: CEFTRIAXONE 1 G VIAL ONE (23:01)
[2018-01-24] MEDS: CEFTRIAXONE 1 G in IV D5W 50 ML IV SCH (23:25)
[2018-01-24] MEDS: IV D5/ 0.9% NACL 1,000 ML IV PRN (23:26)
[2018-01-25] VITALS: BP 153/71
[2018-01-25 04:00] VITALS: BP 159/78
[2018-01-25 08:00] VITALS: BP 148/74
[2018-01-25 08:03] LABS: CALCIUM, SERUM 7.7 mg/dL (8.5-10.1); CARBON DIOXIDE 25 mmol/L (21-32); CHLORIDE 106 mmol/L (98-107); CREATININE 0.6 mg/dL (0.6-1.3); GLUCOSE 117 mg/dL (74-106); POTASSIUM 3.7 mmol/L (3.5-5.1); SODIUM SERUM 140 mmol/L (136-145); UREA NITROGEN, BLOOD 15 mg/dL (7-18)
[2018-01-25 08:06] LABS: BASOPHILS % (AUTO) 0.3 % (0.0-2.0); HEMATOCRIT 29 % (39-51); HEMOGLOBIN 9.5 g/dL (13.5-17.5); LYMPHOCYTES # (AUTO) 0.7 /CMM (0.8-4.8); LYMPHOCYTES % (AUTO) 5.8 % (20.0-44.0); MEAN CORPUSCULAR HEMOGLOBIN 29 PG (26.0-33.0); MEAN CORPUSCULAR HGB CONC 33 g/dl (31.0-36.0); MEAN CORPUSCULAR VOLUME 88 fL (80-96); MONOCYTES # (AUTO) 0.6 /CMM (0.1-1.30); MONOCYTES % (AUTO) 4.9 % (2.0-12.0); NEUTROPHILS # (AUTO) 10.4 /CMM (1.8-8.9); PLATELET COUNT (AUTO) 328 /CMM (150-450); RED BLOOD CELL COUNT(AUTO) 3.24 MIL/uL (4.5-6.0); WHITE BLOOD COUNT (AUTO) 11.7 K/uL (4.3-11.0)
[2018-01-25 08:07] LABS: CHOLESTEROL 181 mg/dL (<200); HDL CHOLESTEROL 74 mg/dL (40-60); LDL 104 mg/dL (0-99); TRIGLYCERIDES 57 mg/dL (30-150)
[2018-01-25 08:09] LABS: TROPONIN I < 0.017 ng/mL (0.00-0.056)
[2018-01-25] MEDS ORDERED: Z GUARD REMEDY 2 OZ OINT TP PRN (09:00)
[2018-01-25] MEDS ORDERED: HYDROGEL DRESSING 90 GM TUBE TP PRN (09:00)
[2018-01-25 12:00] VITALS: BP_SYST 109; BP_SYST 98; BP_DIAS 56; BP_DIAS 57
[2018-01-25] MEDS ORDERED: NA PHOS,M-B/NA PHOS,DI-BA 1 EA ENEMA RC PRN (12:00)
[2018-01-25] MEDS ORDERED: BISACODYL SUPP (10 MG) 10 MG/SUPP.RECT SUPP.RECT RC PRN (12:00)
[2018-01-25] MEDS ORDERED: CARBIDOPA/LEVODOPA 25/100 MG 1 UDTAB PO SCH (13:00)
[2018-01-25] MEDS ORDERED: SILVER NITRATE APPLICATOR 1 EA BOX TP ONE (14:30)
[2018-01-25] MEDS ORDERED: LIDOCAINE 1%-EPI 1:100,000 20 ML VIAL TP ONE (14:30)
[2018-01-25] MEDS: MAGNESIUM HYDROXIDE 30 ML UDC PO SCH (15:12)
[2018-01-25] MEDS: CLOTRIMAZOLE 1% 15 GM TUBE TP SCH ×2 (15:13→17:44)
[2018-01-25] MEDS: HYDROGEL DRESSING 90 GM TUBE TP SCH (15:13)
[2018-01-25] MEDS: Z GUARD REMEDY 2 OZ OINT TP SCH (15:13)
[2018-01-25] MEDS: FINASTERIDE (5 MG) 5 MG TABLET PO SCH (15:14)
[2018-01-25] MEDS: ENTACAPONE 200 MG TABLET PO SCH ×2 (15:14→16:53)
[2018-01-25] MEDS: ASPIRIN 81 MG TAB.CHEW PO SCH (15:14)
[2018-01-25] MEDS: DOCUSATE SODIUM 100 MG CAPSULE PO SCH (15:14)
[2018-01-25 16:00] VITALS: BP 115/60
[2018-01-25] MEDS: CARBIDOPA/LEVODOPA 25/100 MG 1 UDTAB PO SCH (17:45)
[2018-01-25 20:00] VITALS: BP 91/47
[2018-01-25] MEDS: CEFTRIAXONE 1 G in IV D5W 50 ML IV SCH (21:06)
[2018-01-26] MEDS: IV D5/ 0.9% NACL 1,000 ML IV PRN ×3 (00:58→21:35)
[2018-01-26 04:00] VITALS: BP 136/71
[2018-01-26 08:00] VITALS: BP 163/83
[2018-01-26] MEDS: ASPIRIN 81 MG TAB.CHEW PO SCH (08:28)
[2018-01-26] MEDS: MAGNESIUM HYDROXIDE 30 ML UDC PO SCH (08:28)
[2018-01-26] MEDS: ENTACAPONE 200 MG TABLET PO SCH ×3 (08:28→16:13)
[2018-01-26] MEDS: FINASTERIDE (5 MG) 5 MG TABLET PO SCH (08:28)
[2018-01-26] MEDS: CARBIDOPA/LEVODOPA 25/100 MG 1 UDTAB PO SCH ×3 (08:28→16:13)
[2018-01-26] MEDS: DOCUSATE SODIUM 100 MG CAPSULE PO SCH (08:28)
[2018-01-26] MEDS: CLOTRIMAZOLE 1% 15 GM TUBE TP SCH ×2 (08:29→16:13)
[2018-01-26] MEDS: Z GUARD REMEDY 2 OZ OINT TP SCH (08:29)
[2018-01-26] MEDS: HYDROGEL DRESSING 90 GM TUBE TP SCH (08:29)
[2018-01-26 09:11] VITALS: BP 151/78
[2018-01-26] MEDS ORDERED: CLONIDINE HCL 0.1 MG TABLET PO PRN (12:00)
[2018-01-26 16:00] VITALS: BP 132/61
[2018-01-26 16:03] VITALS: BP 132/61
[2018-01-26 20:00] VITALS: BP 102/57
[2018-01-26] MEDS: CEFTRIAXONE 1 G in IV D5W 50 ML IV SCH (21:35)
[2018-01-27 04:00] VITALS: BP 154/52
[2018-01-27 04:27] VITALS: BP 154/52
[2018-01-27 07:35] LABS: BASOPHILS % (AUTO) 0.3 % (0.0-2.0); EOSINOPHILS % (AUTO) 0.5 % (0.0-6.0); HEMATOCRIT 30 % (39-51); LYMPHOCYTES # (AUTO) 2.1 /CMM (0.8-4.8); LYMPHOCYTES % (AUTO) 26.8 % (20.0-44.0); MEAN CORPUSCULAR HEMOGLOBIN 29 PG (26.0-33.0); MEAN CORPUSCULAR HGB CONC 34 g/dl (31.0-36.0); MEAN CORPUSCULAR VOLUME 87 fL (80-96); MONOCYTES # (AUTO) 1.2 /CMM (0.1-1.30); MONOCYTES % (AUTO) 15.2 % (2.0-12.0); NEUTROPHILS # (AUTO) 4.4 /CMM (1.8-8.9); NEUTROPHILS % (AUTO) 57.2 % (43.0-81.0); PLATELET COUNT (AUTO) 311 /CMM (150-450); RDW COEFFICIENT OF VARIATION 17.6 (11.5-15.0); RED BLOOD CELL COUNT(AUTO) 3.44 MIL/uL (4.5-6.0); WHITE BLOOD COUNT (AUTO) 7.7 K/uL (4.3-11.0)
[2018-01-27 07:49] LABS: CALCIUM, SERUM 8.3 mg/dL (8.5-10.1); CARBON DIOXIDE 28 mmol/L (21-32); CHLORIDE 105 mmol/L (98-107); CREATININE 0.6 mg/dL (0.6-1.3); GLUCOSE 94 mg/dL (74-106); POTASSIUM 4.2 mmol/L (3.5-5.1); SODIUM SERUM 139 mmol/L (136-145); UREA NITROGEN, BLOOD 7 mg/dL (7-18)
[2018-01-27 08:00] VITALS: BP 145/71
[2018-01-27 08:31] LABS: BAND % (MANUAL) 1 % (0.0-5.0); EOSINOPHILS % (MANUAL) 1 % (0-4); LYMPHOCYTES % (MANUAL) 21 % (16-48); MONOCYTES % (MANUAL) 17 % (0-11.0); NEUTROPHILS % (MANUAL) 60 (42-76)
[2018-01-27] MEDS: ASPIRIN 81 MG TAB.CHEW PO SCH (10:02)
[2018-01-27] MEDS: DOCUSATE SODIUM 100 MG CAPSULE PO SCH (10:02)
[2018-01-27] MEDS: MAGNESIUM HYDROXIDE 30 ML UDC PO SCH (10:02)
[2018-01-27] MEDS: CARBIDOPA/LEVODOPA 25/100 MG 1 UDTAB PO SCH ×3 (10:02→17:07)
[2018-01-27] MEDS: FINASTERIDE (5 MG) 5 MG TABLET PO SCH (10:03)
[2018-01-27] MEDS: ENTACAPONE 200 MG TABLET PO SCH ×3 (10:03→17:07)
[2018-01-27] MEDS: CLOTRIMAZOLE 1% 15 GM TUBE TP SCH ×2 (14:40→17:08)
[2018-01-27] MEDS: Z GUARD REMEDY 2 OZ OINT TP SCH (14:40)
[2018-01-27] MEDS: HYDROGEL DRESSING 90 GM TUBE TP SCH (14:41)
[2018-01-27 20:00] VITALS: BP 117/60
[2018-01-27] MEDS: IV D5/ 0.9% NACL 1,000 ML IV PRN (21:13)
[2018-01-27] MEDS: CEFTRIAXONE 1 G in IV D5W 50 ML IV SCH (21:13)
[2018-01-28 06:17] VITALS: BP 155/70
[2018-01-28 08:00] VITALS: BP 123/69
[2018-01-28] MEDS: FINASTERIDE (5 MG) 5 MG TABLET PO SCH (08:53)
[2018-01-28] MEDS: ENTACAPONE 200 MG TABLET PO SCH ×3 (08:53→16:41)
[2018-01-28] MEDS: ASPIRIN 81 MG TAB.CHEW PO SCH (08:53)
[2018-01-28] MEDS: CARBIDOPA/LEVODOPA 25/100 MG 1 UDTAB PO SCH ×3 (08:53→16:42)
[2018-01-28] MEDS: HYDROGEL DRESSING 90 GM TUBE TP SCH (08:54)
[2018-01-28] MEDS: Z GUARD REMEDY 2 OZ OINT TP SCH (08:54)
[2018-01-28] MEDS: MAGNESIUM HYDROXIDE 30 ML UDC PO SCH (08:54)
[2018-01-28] MEDS: DOCUSATE SODIUM 100 MG CAPSULE PO SCH (08:54)
[2018-01-28] MEDS: CLOTRIMAZOLE 1% 15 GM TUBE TP SCH ×2 (08:54→16:42)
[2018-01-28 16:00] VITALS: BP 133/66
[2018-01-28 20:00] VITALS: BP 130/66
[2018-01-28] MEDS: CEFTRIAXONE 1 G in IV D5W 50 ML IV SCH (21:26)
[2018-01-28] MEDS: IV D5/ 0.9% NACL 1,000 ML IV PRN (21:38)
[2018-01-29 01:59] VITALS: BP 96/45
[2018-01-29 04:27] VITALS: BP 144/78
[2018-01-29 08:00] VITALS: BP 152/70
[2018-01-29] MEDS: ENTACAPONE 200 MG TABLET PO SCH ×3 (10:42→18:34)
[2018-01-29] MEDS: CARBIDOPA/LEVODOPA 25/100 MG 1 UDTAB PO SCH ×3 (10:42→18:34)
[2018-01-29] MEDS: ASPIRIN 81 MG TAB.CHEW PO SCH (10:42)
[2018-01-29] MEDS: FINASTERIDE (5 MG) 5 MG TABLET PO SCH (10:43)
[2018-01-29] MEDS: MAGNESIUM HYDROXIDE 30 ML UDC PO SCH (10:43)
[2018-01-29] MEDS: HYDROGEL DRESSING 90 GM TUBE TP SCH (10:44)
[2018-01-29] MEDS: CLOTRIMAZOLE 1% 15 GM TUBE TP SCH ×2 (10:45→18:35)
[2018-01-29] MEDS: Z GUARD REMEDY 2 OZ OINT TP SCH (10:45)
[2018-01-29] MEDS: DOCUSATE SODIUM LIQ 100 MG/10 ML UDC NG SCH (10:48)
[2018-01-29 16:00] VITALS: BP 133/63
[2018-01-29 20:00] VITALS: BP 132/80
[2018-01-29 21:00] VITALS: BP 132/80
[2018-01-29] MEDS: CEFTRIAXONE 1 G in IV D5W 50 ML IV SCH (21:57)
[2018-01-30] VITALS: BP 130/58
[2018-01-30 04:00] VITALS: BP 130/47
[2018-01-30 08:00] VITALS: BP 164/62
[2018-01-30] MEDS: CARBIDOPA/LEVODOPA 25/100 MG 1 UDTAB PO SCH ×3 (09:00→16:52)
[2018-01-30] MEDS: ASPIRIN 81 MG TAB.CHEW PO SCH (09:00)
[2018-01-30] MEDS: ENTACAPONE 200 MG TABLET PO SCH ×3 (09:00→16:51)
[2018-01-30] MEDS: DOCUSATE SODIUM LIQ 100 MG/10 ML UDC NG SCH (09:00)
[2018-01-30] MEDS: FINASTERIDE (5 MG) 5 MG TABLET PO SCH (09:00)
[2018-01-30] MEDS: MAGNESIUM HYDROXIDE 30 ML UDC PO SCH (09:00)
[2018-01-30] MEDS: Z GUARD REMEDY 2 OZ OINT TP SCH (09:01)
[2018-01-30] MEDS: HYDROGEL DRESSING 90 GM TUBE TP SCH (09:09)
[2018-01-30] MEDS: CLOTRIMAZOLE 1% 15 GM TUBE TP SCH ×2 (09:09→16:52)
[2018-01-30 12:00] VITALS: BP 117/64
[2018-01-30] MEDS: IV D5/ 0.9% NACL 1,000 ML IV PRN (13:05)
[2018-01-30 16:00] VITALS: BP 131/69
[2018-01-30 20:00] VITALS: BP 124/63
[2018-01-30] MEDS: CEFTRIAXONE 1 G in IV D5W 50 ML IV SCH (21:55)
[2018-01-31 08:00] VITALS: BP 157/74
[2018-01-31] MEDS: FINASTERIDE (5 MG) 5 MG TABLET PO SCH (08:22)
[2018-01-31] MEDS: ENTACAPONE 200 MG TABLET PO SCH ×2 (08:22→12:26)
[2018-01-31] MEDS: MAGNESIUM HYDROXIDE 30 ML UDC PO SCH (08:22)
[2018-01-31] MEDS: DOCUSATE SODIUM LIQ 100 MG/10 ML UDC NG SCH (08:22)
[2018-01-31] MEDS: CARBIDOPA/LEVODOPA 25/100 MG 1 UDTAB PO SCH ×2 (08:22→12:26)
[2018-01-31] MEDS: ASPIRIN 81 MG TAB.CHEW PO SCH (08:22)
[2018-01-31] MEDS: HYDROGEL DRESSING 90 GM TUBE TP SCH (08:23)
[2018-01-31] MEDS: CLOTRIMAZOLE 1% 15 GM TUBE TP SCH (08:23)
[2018-01-31] MEDS: Z GUARD REMEDY 2 OZ OINT TP SCH (08:24)
[2018-01-31] MEDS: IV D5/ 0.9% NACL 1,000 ML IV PRN (08:32)
[2018-01-31 09:23] VITALS: BP 157/74
== END 2018-01-31 15:58 | DRG 853 ==
LOC: ER 16:33 → MED 21:18 → TELE-TD 21:32 → TELE1 22:07 → MEDSG1 01-25 13:49
PROVIDERS: ADMIT Legal Medicine; ATTEND Legal Medicine
PROC: 0JB70ZZ Excision of Back Subcutaneous Tissue and Fascia, Open Approach (ICD-10-PCS; principal; 2018-01-27)
DX: A41.9 Sepsis, unspecified organism (principal); G93.40 Encephalopathy, unspecified; E43 Unspecified severe protein-calorie malnutrition; L89.153 Pressure ulcer of sacral region, stage 3; G20 Parkinson's disease; I48.91 Unspecified atrial fibrillation; N39.0 Urinary tract infection, site not specified; D64.9 Anemia, unspecified; E11.9 Type 2 diabetes mellitus without complications; B96.20 Unspecified Escherichia coli [E. coli] as the cause of diseases classified elsewhere; E86.0 Dehydration; R62.7 Adult failure to thrive; I10 Essential (primary) hypertension; I25.10 Atherosclerotic heart disease of native coronary artery without angina pectoris; Z79.899 Other long term (current) drug therapy; Z79.82 Long term (current) use of aspirin; N40.0 Benign prostatic hyperplasia without lower urinary tract symptoms; F02.80 Dementia in other diseases classified elsewhere, unspecified severity, without behavioral disturbance, psychotic disturbance, mood disturbance, and anxiety; F39 Unspecified mood [affective] disorder; H40.9 Unspecified glaucoma; M19.90 Unspecified osteoarthritis, unspecified site; Z79.84 Long term (current) use of oral hypoglycemic drugs; L98.9 Disorder of the skin and subcutaneous tissue, unspecified; K59.00 Constipation, unspecified
CPT/HCPCS: 36415; 71045-TC; 80048-TC; 80061-TC; 80076-TC; 81000-TC; 82140-TC; 84484-TC; 85025-TC; 87081-TC; 87086-TC; 87186-TC; 92526; 92611-TC; 93307-TC; A4606; A6248; J0696; J3490; J7030; J7042; J7060; Z7610

== ENCOUNTER 2018-02-19 18:33 | Inpatient (IN) | payer MEDICARE, MEDICAID ==
[~2018-02-19] VITALS: Ht 177.8 cm; Wt 48.5 kg
[~2018-02-19 18:33] MED LIST changes: +ASPI-1169 PO; -ATOR40TA PO; +BISA10SU8 RC; -CRAN3875 PO; +DOCU100C36 PO; -HYDR-552 PO; +METF-441 PO; -METF850T2 PO
--- NOTE | 2018-02-19 18:33 | NUR ---
KAYKAY FROM [facility] FOR PNA PER PMD XRAY TAKEN, 1L NS RECEIVED AT SNF. PLACED ON MONITOR. AWAITING MD ORDER
[2018-02-19] MEDS ORDERED: CLON0.1T PO (19:04)
[2018-02-19] MEDS ORDERED: ZINC220C8 PO (19:04)
[2018-02-19] MEDS ORDERED: FERR325T23 PO (19:04)
[2018-02-19] MEDS ORDERED: ASCO500T9 PO (19:04)
[2018-02-19] MEDS ORDERED: MULT-447 PO (19:04)
--- NOTE | 2018-02-19 19:19 | NUR ---
GAVE REPORT TO SATYA FOR JORDAN
--- NOTE | 2018-02-19 19:20 | NUR ---
XR AT BEDSIDE.
[2018-02-19 19:24] LABS: BASOPHILS % (AUTO) 0.1 % (0.0-2.0); HEMATOCRIT 29 % (39-51); HEMOGLOBIN 9.5 g/dL (13.5-17.5); LYMPHOCYTES # (AUTO) 1.1 /CMM (0.8-4.8); LYMPHOCYTES % (AUTO) 6.1 % (20.0-44.0); MEAN CORPUSCULAR HGB CONC 33 g/dl (31.0-36.0); MEAN CORPUSCULAR VOLUME 87 fL (80-96); MONOCYTES # (AUTO) 0.9 /CMM (0.1-1.30); NEUTROPHILS # (AUTO) 16.3 /CMM (1.8-8.9); NEUTROPHILS % (AUTO) 88.8 % (43.0-81.0); PLATELET COUNT (AUTO) 337 /CMM (150-450); RDW COEFFICIENT OF VARIATION 16.6 (11.5-15.0); RED BLOOD CELL COUNT(AUTO) 3.38 MIL/uL (4.5-6.0); WHITE BLOOD COUNT (AUTO) 18.3 K/uL (4.3-11.0)
[2018-02-19 19:36] LABS: CALCIUM, SERUM 8.5 mg/dL (8.5-10.1); CARBON DIOXIDE 26 mmol/L (21-32); CHLORIDE 108 mmol/L (98-107); CREATININE 1.1 mg/dL (0.6-1.3); GLUCOSE 160 mg/dL (74-106); POTASSIUM 3.7 mmol/L (3.5-5.1); SODIUM SERUM 147 mmol/L (136-145); UREA NITROGEN, BLOOD 31 mg/dL (7-18)
[2018-02-19 19:40] LABS: TROPONIN I 0.041 ng/mL (0.00-0.056)
--- NOTE | 2018-02-19 19:40 | NUR ---
PATIENT IS LETHARGIC, AROUSABLE TO TACTILE STIMULI. NONVERBAL AT THIS TIME AND DOES NOT FOLLOW COMMANDS. ONGOING MONITORING OF V/S.
[2018-02-19 19:47] LABS: ALANINE AMINOTRANSFERASE 11 U/L (12-78); ALBUMIN 2.6 g/dL (3.4-5.0); ALKALINE PHOSPHATASE 73 U/L (46-116); ASPARTATE AMINOTRANSFERASE 14 U/L (15-37); BILIRUBIN,DIRECT 0.1 mg/dL (0.0-0.2); BILIRUBIN,TOTAL 0.4 mg/dL (0.2-1.0); INR 1.03 (0.87-1.13); TOTAL PROTEIN, SERUM 7.1 g/dL (6.4-8.2)
[2018-02-19 19:53] LABS: APPEARANCE,URINE Clear (CLEAR); BILIRUBIN,URINE Negative (NEGATIVE); BLOOD, URINE Moderate Ery/uL (NEGATIVE); COLOR,URINE Yellow (YELLOW); KETONES,URINE Negative (NEGATIVE); LEUKOCYTE ESTERASE ,URINE Large (NEGATIVE); NITRITE, URINE Positive (NEGATIVE); PROTEIN,URINE 30 mg/dl (NEGATIVE); UGLUCOSE Negative (NEGATIVE); UROBILINOGEN,URINE 0.2 EU/dL (0.2)
[2018-02-19] MEDS ORDERED: CEFTRIAXONE 1GM BAG (ER ONLY) 1 GM/50 ML PIGGYBACK IV ONE (20:00)
[2018-02-19] MEDS ORDERED: IV NS 0.9% 1,000 ML BAG IV ONE ×2 (20:00)
[2018-02-19] MEDS ORDERED: CEFTRIAXONE 1GM BAG (ER ONLY) 50 ML IV ONE (20:03)
[2018-02-19 20:10] LABS: BACTERIA,URINE 3+ /HPF (None Seen); SQUAMOUS EPITHELIAL CELL,UR None Seen /HPF (None Seen)
--- NOTE | 2018-02-19 20:30 | NUR ---
PATIENT TO ROOM 310-2.
--- NOTE | 2018-02-19 20:40 | NUR ---
DR. CHAMPION PAGED. WAITING FOR CALL BACK
[2018-02-19] MEDS ORDERED: VANCOMYCIN 1 GM in IV D5W 250 ML IV ONE (21:00)
[2018-02-19] MEDS ORDERED: CEFEPIME 1 GM in IV D5W 50 ML IV ONE (21:00)
[2018-02-19] MEDS ORDERED: ASPIRIN 300 MG/SUPP.RECT RC ONE ×2 (21:00→21:09)
--- NOTE | 2018-02-19 21:07 | NUR ---
report given to Nguyen for admission and yamile.
[2018-02-19] MEDS ORDERED: CEFEPIME 1 GM VIAL ONE (21:09)
[2018-02-19] MEDS ORDERED: VANCOMYCIN 1 GM VIAL ONE (21:34)
[2018-02-19 21:50] VITALS: BP 109/77
--- NOTE | 2018-02-19 21:50 | NUR ---
TELE/HEAD OF SALES; RECEIVED PT FROM ER FOR ADMISSION CAME VIA GURNEY ACCOMPANIED BY THE ER, RN AND MALE ER STAFF. PT WAS AWAKE EYES OPENED BUT NON VERBAL. WITH IV OF VANCOMYCIN INFUSING. WITH O2 4L NC . PT WITH PACEMAKER ON RUC. HAS FC INTACT. PT WITH PRESSURE SORES ,REDNESS ON SACRAL / BUTTOCKS AND REDNESS RT FOOT LATERAL. HAS HL ON LT HAND # 22 ; HL ALSO ON RAC # 18. BED ONLOWER POSITION AND LOCKED FOR SAFETY. SIDE RAILS ARE UP FOR SAFETY. CALL LIGHT WITHIN REACH. PLACED ON MILK AND CREAM GRADER. CALL LIGHT WITHIN REACH. PER ER REPORT DR. MARK HERNANDEZ IS AWARE OF THIS PT ADMISSION.
--- NOTE | 2018-02-19 21:59 | NUR ---
TRANSFERRED PATIENT TO TELE BED VIA [facility], NO INCIDENT NOTED.
--- NOTE | 2018-02-19 23:00 | NUR ---
TELE/RIVET MACHINE OPERATOR; DR. MARK HERNANDEZ CAME TO THE FLOOR AND I TOLD HIM OF THIS ADMISSION AND HE SAID HE WILL PUT ORDERS.
--- NOTE | 2018-02-19 23:00 | NUR ---
TELE/MANDARIN CHINESE TEACHER; DR. MARK HERNANDEZ MADE AWARE PT HAS PRESSURE SORES ON SACRAL / BUTTOCKS AND RT FOOT LATERAL.
[2018-02-20] VITALS: BP 100/58
[2018-02-20] MEDS ORDERED: CLONIDINE HCL 0.1 MG TABLET PO PRN (02:00)
[2018-02-20] MEDS ORDERED: IV NS 0.9% 1,000 ML IV PRN (02:00)
[2018-02-20] MEDS ORDERED: DEXTROSE 50%-WATER 50 ML DISP.SYRIN IV PRN (02:00)
[2018-02-20] MEDS ORDERED: Z GUARD REMEDY 2 OZ OINT TP PRN (02:00)
[2018-02-20] MEDS ORDERED: ACETAMINOPHEN 325 MG TABLET PO PRN (02:00)
[2018-02-20] MEDS ORDERED: ONDANSETRON HCL/PF 4 MG/2 ML VIAL IVP PRN (02:00)
[2018-02-20] MEDS: IV 1/2NS 1000 ML 1,000 ML IV PRN (02:20)
[2018-02-20 04:00] VITALS: BP 92/47
[2018-02-20] MEDS ORDERED: PIPERACILLIN /TAZOBACTAM 3.375 G VIAL IV ONE (05:19)
[2018-02-20] MEDS ORDERED: ACETAMINOPHEN 650 MG/SUPP.RECT RC PRN (05:30)
[2018-02-20] MEDS: PIPERACILLIN /TAZOBACTAM 3.375 G in IV NS 0.9% 50 ML IV SCH ×4 (05:35→23:20)
[2018-02-20] MEDS: BLOOD SUGAR DIAGNOSTIC 1 EACH STRIP IN SCH ×4 (06:15→21:08)
--- NOTE | 2018-02-20 06:15 | NUR ---
TELE/ACCOUNTANT CONTROLLER; BS 144 CHARGE NURSE MADE AWARE. COVERAGE NOT GIVEN PT IS NOT EATING AND FOR SWALLOW EVAL.
--- NOTE | 2018-02-20 06:40 | NUR ---
TELE/SEMICONDUCTOR TESTING GROUP LEADER; PT ON SR 74. IVF ON PROGRESS. FC INTACT WITH 400 LM CLEAR ORANGE COLOR. PT DID TALK BUT LIMITED. SLEPT FAIRLY. COUGHING STILL NOTED. CONTINUE TO MONITOR. CALL LIGHT WITHINREACH. WILL ENDORSE TO THE DAY SHIFT NURSE.
--- NOTE | 2018-02-20 07:10 | NUR ---
RN NOTES PT IS LAYING DOWN IN BED, AWAKE AND CONFUSED. PT ON 4L O2, RESPIRATIONS ARE EVEN AND UNLABORED. IV ON L HAND AND RAC, INTACT AND RUNNING 1/2 NS @ 100ML/HR. JOSEPH CATHETER IS INTACT AND DRAINING TO GRAVITY. SAFETY MEASURES ARE IN PLACE, CALL LIGHT IS IN REACH. WILL CONTINUE TO MONITOR.
--- NOTE | 2018-02-20 07:30 | NUR ---
RN NOTES ONE TIME ORDERED ZOSYN DOSE NON-ADMIN. OVERRIDE BY LASER BEAM CUTTER NURSE, GAVE SCHEDULED DOSE ORDERED
[2018-02-20 08:00] VITALS: BP 106/57
[2018-02-20] MEDS ORDERED: BOOST PLUS FOOD-VANILLA 237 ML BOX PO SCH (08:00)
[2018-02-20 08:03] LABS: IRON, SERUM 10 ug/dl (50-175); TOTAL IRON BINDING CAPACITY 195 ug/dl (250-450)
[2018-02-20] MEDS ORDERED: FEE PK DOSING 1 MIN EA MC ONE (08:11)
[2018-02-20] MEDS: CARBIDOPA/LEVODOPA 25/100 MG 1 UDTAB PO SCH ×3 (08:31→17:38)
[2018-02-20] MEDS: MEMANTINE HCL 5 MG TABLET PO SCH ×2 (08:31→17:38)
[2018-02-20] MEDS: ASPIRIN 81 MG TAB.CHEW PO SCH (08:31)
[2018-02-20] MEDS: FINASTERIDE (5 MG) 5 MG TABLET PO SCH (08:31)
[2018-02-20] MEDS: ENOXAPARIN SODIUM 40 MG/0.4 ML DISP.SYRIN SQ SCH (08:35)
[2018-02-20] MEDS: ENTACAPONE 200 MG TABLET PO SCH ×3 (08:49→17:38)
[2018-02-20] MEDS: SITAGLIPTIN PHOSPHATE 50 MG TABLET PO SCH (08:49)
[2018-02-20 08:59] LABS: FERRITIN 127 ng/mL (8-388)
[2018-02-20] MEDS: VANCOMYCIN 500 MG in IV D5W 100 ML IV SCH ×2 (09:02→21:12)
[2018-02-20 09:54] LABS: BASOPHILS % (AUTO) 0.2 % (0.0-2.0); HEMATOCRIT 26 % (39-51); HEMOGLOBIN 8.6 g/dL (13.5-17.5); LYMPHOCYTES # (AUTO) 1.2 /CMM (0.8-4.8); LYMPHOCYTES % (AUTO) 6.6 % (20.0-44.0); MEAN CORPUSCULAR HGB CONC 33 g/dl (31.0-36.0); MEAN CORPUSCULAR VOLUME 87 fL (80-96); MONOCYTES # (AUTO) 0.8 /CMM (0.1-1.30); MONOCYTES % (AUTO) 4.2 % (2.0-12.0); NEUTROPHILS # (AUTO) 16.7 /CMM (1.8-8.9); PLATELET COUNT (AUTO) 311 /CMM (150-450); RDW COEFFICIENT OF VARIATION 16.8 (11.5-15.0); RED BLOOD CELL COUNT(AUTO) 3.02 MIL/uL (4.5-6.0); WHITE BLOOD COUNT (AUTO) 18.8 K/uL (4.3-11.0)
[2018-02-20 10:36] LABS: CALCIUM, SERUM 8.4 mg/dL (8.5-10.1); CARBON DIOXIDE 20 mmol/L (21-32); CHLORIDE 111 mmol/L (98-107); GLUCOSE 111 mg/dL (74-106); POTASSIUM 3.7 mmol/L (3.5-5.1); SODIUM SERUM 147 mmol/L (136-145); UREA NITROGEN, BLOOD 31 mg/dL (7-18)
[2018-02-20 11:02] LABS: BAND % (MANUAL) 8 % (0.0-5.0); LYMPHOCYTES % (MANUAL) 7 % (16-48); MONOCYTES % (MANUAL) 4 % (0-11.0); NEUTROPHILS % (MANUAL) 81 (42-76)
[2018-02-20 16:00] VITALS: BP 120/70
[2018-02-20] MEDS: BOOST GLUCOSE CONTROL VANILLA 237 ML BOX PO SCH (17:00)
[2018-02-20] MEDS: FERROUS SULFATE (325 MG) 325 MG/TAB TABLET PO SCH (17:38)
--- NOTE | 2018-02-20 18:45 | NUR ---
RN NOTES PT IS LAYING DOWN IN BED, RESTING COMFORTABLY. PT ON 4L O2, RESPIRATIONS ARE EVEN AND UNLABORED. IV ON CARMELITA INTACT AND RUNNING 1/2NS @ 100ML/HR. JOSEPH CATHETER IS INTACT AND DRAINING TO GRAVITY. ALL MEDS GIVEN ORDERED AND WOUND CARE PROVIDED. SAFETY MEASURES ARE IN PLACE, CALL LIGHT IS IN REACH, BED ALARM IS ON. WILL ENDORSE TO INFORMATION TECHNOLOGY ASSISTANT RN FOR CONTINUITY OF CARE.
--- NOTE | 2018-02-20 19:05 | NUR ---
RN OPENING NOTES: RECEIVED PT IN BED AND IS AWAKE AT THIS TIME. PT ON 4LPM VIA NC AND IS TOLERATING WELL. PT HAS JOSEPH CATH AND IS ATTACHED TO DRAINAGE BAG WITH YELLOW URINE DRAINING. PT HAS CARMELITA #22G AND IS BEING INFUSED WITH ZOSYN. CALL LIGHT WITHIN PT'S REACH. BED KEPT IN LOW, LOCKED POSITION, AND SIDE RAILS X 2UP. WILL CONTINUE TO MONITOR PT.
[2018-02-20 20:00] VITALS: BP 117/44
[2018-02-20] MEDS: INSULIN REGULAR, HUMAN 100 UNIT/ML 3 ML VIAL SQ PRN (21:14)
--- NOTE | 2018-02-20 21:15 | NUR ---
RN NOTES; BLOOD SUGAR 105. NO INSULIN WAS ADMINISTERED. WILL CONTINUE TO MONITOR.
[2018-02-20] MEDS: DONEPEZIL 5 MG TABLET PO SCH (21:19)
[2018-02-20] MEDS: MIRTAZAPINE 15 MG TABLET PO SCH (21:19)
[2018-02-21] MEDS: PIPERACILLIN /TAZOBACTAM 3.375 G in IV NS 0.9% 50 ML IV SCH ×4 (05:02→23:03)
[2018-02-21] MEDS: BLOOD SUGAR DIAGNOSTIC 1 EACH STRIP IN SCH ×4 (06:18→21:04)
[2018-02-21 06:49] LABS: BASOPHILS % (AUTO) 0.1 % (0.0-2.0); EOSINOPHILS % (AUTO) 1.5 % (0.0-6.0); HEMATOCRIT 25 % (39-51); HEMOGLOBIN 8.1 g/dL (13.5-17.5); LYMPHOCYTES # (AUTO) 1.6 /CMM (0.8-4.8); LYMPHOCYTES % (AUTO) 12.7 % (20.0-44.0); MEAN CORPUSCULAR HGB CONC 33 g/dl (31.0-36.0); MEAN CORPUSCULAR VOLUME 86 fL (80-96); MONOCYTES # (AUTO) 0.8 /CMM (0.1-1.30); MONOCYTES % (AUTO) 6.2 % (2.0-12.0); NEUTROPHILS % (AUTO) 79.5 % (43.0-81.0); PLATELET COUNT (AUTO) 284 /CMM (150-450); RDW COEFFICIENT OF VARIATION 16.9 (11.5-15.0); RED BLOOD CELL COUNT(AUTO) 2.85 MIL/uL (4.5-6.0); WHITE BLOOD COUNT (AUTO) 12.6 K/uL (4.3-11.0)
[2018-02-21 07:12] LABS: ALANINE AMINOTRANSFERASE 14 U/L (12-78); ALBUMIN 2.1 g/dL (3.4-5.0); ALKALINE PHOSPHATASE 64 U/L (46-116); ASPARTATE AMINOTRANSFERASE 19 U/L (15-37); BILIRUBIN,TOTAL 0.5 mg/dL (0.2-1.0); CALCIUM, SERUM 7.6 mg/dL (8.5-10.1); CARBON DIOXIDE 26 mmol/L (21-32); CHLORIDE 105 mmol/L (98-107); CREATININE 0.8 mg/dL (0.6-1.3); GLUCOSE 99 mg/dL (74-106); MAGNESIUM 1.5 mg/dL (1.8-2.4); PHOSPHORUS 2.4 mg/dL (2.5-4.9); POTASSIUM 3.4 mmol/L (3.5-5.1); SODIUM SERUM 139 mmol/L (136-145); TOTAL PROTEIN, SERUM 6.1 g/dL (6.4-8.2); UREA NITROGEN, BLOOD 19 mg/dL (7-18)
[2018-02-21 07:17] LABS: CHOLESTEROL 132 mg/dL (<200); HDL CHOLESTEROL 45 mg/dL (40-60); LDL 65 mg/dL (0-99); THYROID STIMULATING HORMONE 3.079 uIU/mL (0.358-3.74); TRIGLYCERIDES 92 mg/dL (30-150)
[2018-02-21] MEDS: INSULIN REGULAR, HUMAN 100 UNIT/ML 3 ML VIAL SQ PRN ×2 (07:35→21:22)
--- NOTE | 2018-02-21 07:35 | NUR ---
RN CLOSING NOTES: ALL NEEDS WERE ATTENDED AND ANTICIPATED FOR. PT ON 4LPM VIA NC AND IS TOLERATING WELL. PT ASLEEP AT THIS TIME. PT HAS JOSEPH CATH AND IS ATTACHED TO DRAINAGE BAG WITH YELLOW URINE DRAINING. PT HAS CARMELITA #22G AND IS BEING INFUSED WITH 1/2 NS AT 100ML/HR. BLOOD SUGAR THIS AM WAS 96. NO INSULIN WAS COVERED. CALL LIGHT WITHIN PT'S REACH. BED KEPT IN LOW, LOCKED POSITION, AND SIDE RAILS X 2UP. ENDORSED TO AM NURSE FOR JORDAN.
--- NOTE | 2018-02-21 07:38 | NUR ---
MS/RN OPENING NOTE PATIENT IN BED IN STABLE CONDITION. A/O X 1. NO SIGNS OF ACUTE DISTRESS. NO COMPLAIN OF PAIN OR DISCOMFORT. ALL NEEDS ATTENDED TO. CALL LIGHT WITHIN REACH. WILL CONTINUE TO MONITOR TO ENSURE SAFETY.
[2018-02-21 08:00] VITALS: BP 119/62
[2018-02-21] MEDS: ENTACAPONE 200 MG TABLET PO SCH ×3 (09:00→16:52)
[2018-02-21] MEDS: SITAGLIPTIN PHOSPHATE 50 MG TABLET PO SCH (09:01)
[2018-02-21] MEDS: ENOXAPARIN SODIUM 40 MG/0.4 ML DISP.SYRIN SQ SCH (09:02)
[2018-02-21] MEDS: CARBIDOPA/LEVODOPA 25/100 MG 1 UDTAB PO SCH ×3 (09:02→16:52)
[2018-02-21] MEDS: FINASTERIDE (5 MG) 5 MG TABLET PO SCH (09:02)
[2018-02-21] MEDS: ASPIRIN 81 MG TAB.CHEW PO SCH (09:02)
[2018-02-21] MEDS: MEMANTINE HCL 5 MG TABLET PO SCH ×2 (09:02→16:52)
[2018-02-21] MEDS ORDERED: POTASSIUM CHLORIDE 20 MEQ POWDER PACKET NG SCH (10:30)
[2018-02-21] MEDS: Magnesium 1GM/D5W 100ML PREMIX 100 ML IV SCH ×2 (10:39→12:07)
[2018-02-21] MEDS: BOOST GLUCOSE CONTROL VANILLA 237 ML BOX PO SCH ×2 (10:39→16:52)
[2018-02-21] MEDS: IV 1/2NS 1000 ML 1,000 ML IV PRN (10:42)
--- NOTE | 2018-02-21 11:00 | NUR ---
MS/RN SEEN BY SPEECH THERAPY PATIENT SEEN BY ST WITH RECOMMENDATION FOR VIDEO SWALLOW EVAL. SPOKE WITH DR CHAMPION AND MADE HIM AWARE WITH ORDERS FOR VIDEO SWALLOW EVAL IN AM.
[2018-02-21] MEDS: VANCOMYCIN 500 MG in IV D5W 100 ML IV SCH ×2 (12:08→21:10)
[2018-02-21] MEDS ORDERED: K PHOS NEUTRAL 250 MG TABLET PO ONE (15:30)
[2018-02-21] MEDS: FERROUS SULFATE (325 MG) 325 MG/TAB TABLET PO SCH (16:53)
--- NOTE | 2018-02-21 18:23 | NUR ---
MS/RN CLOSING NOTE PATIENT IN BED IN STABLE CONDITION. A/O X 1, WITH EPISODES OF CONFUSION AND FORGETFULNESS. NO SIGNS OF ACUTE DISTRESS. NO COMPLAIN OF PAIN OR DISCOMFORT. ALL NEEDS ATTENDED TO. CALL LIGHT WITHIN REACH. WILL ENDORSE TO NEXT SHIFT FOR CONTINUITY OF CARE.
[2018-02-21 18:25] VITALS: BP 98/47
--- NOTE | 2018-02-21 19:20 | NUR ---
MS RN OPENING NOTES: RECEIVED PT IN BED AND IS ASLEEP AT THIS TIME. PT ON 4LPM VIA NC. PT HAS JOSEPH CATH AND IS ATTACHED TO DRAINAGE BAG WITH HELLOW URINE DRAINING. PT HAS IV ON CARMELITA #22G AND IS BEING INFUSED WITH IV 1/2 NS AT 100ML/HR. SITTER AT BEDSIDE. CALL LIGHT WITHIN PT'S REACH. BED KEPT IN LOW, LOCKED POSITION, AND SIDE RAILS X 2UP. WILL CONTINUE TO MONITOR PT.
[2018-02-21 20:00] VITALS: BP 106/62
--- NOTE | 2018-02-21 20:45 | NUR ---
RN NOTES: GOT CALL FROM [employer]. MRSA POSITIVE FOR RIGHT NARE.
[2018-02-21] MEDS: DONEPEZIL 5 MG TABLET PO SCH (21:04)
[2018-02-21] MEDS: MIRTAZAPINE 15 MG TABLET PO SCH (21:05)
--- NOTE | 2018-02-21 21:23 | NUR ---
MS RN NOTES: BLOOD SUGAR 85. NO INSULIN WAS ADMINISTERED. WILL CONTINUE TO MONITOR PT.
--- NOTE | 2018-02-21 22:01 | NUR ---
MS RN NOTES: PT NOW IN ROOM 319 D/T CONTACT ISOLATION MRSA RIGHT NARE.
[2018-02-22] MEDS: IV 1/2NS 1000 ML 1,000 ML IV PRN ×2 (02:39→20:40)
[2018-02-22] MEDS: PIPERACILLIN /TAZOBACTAM 3.375 G in IV NS 0.9% 50 ML IV SCH (05:00)
[2018-02-22] MEDS: BLOOD SUGAR DIAGNOSTIC 1 EACH STRIP IN SCH ×4 (06:05→21:44)
[2018-02-22] MEDS: INSULIN REGULAR, HUMAN 100 UNIT/ML 3 ML VIAL SQ PRN ×3 (06:06→16:56)
--- NOTE | 2018-02-22 06:07 | NUR ---
RN NOTES: BLOOD SUGAR THIS AM WAS 105. NO INSULIN IS TO BE ADMINISTERED.
--- NOTE | 2018-02-22 06:31 | NUR ---
MS RN CLOSING NOTES: ALL NEEDS WERE ATTENDED AND ANTICIPATED FOR. PT ASLEEP AT THIS TIME. PT HAS JOSEPH CATH AND IS ATTACHED TO DRAINAGE BAG WITH YELLOW URINE DRAINING. PT REMOVED NC FROM TIME TO TIME BUT TOLERATES WELL ON ROOM AIR. CALL LIGHT WITHIN PT'S REACH. BED KEPT IN LOW, LOCKED POSITION, AND SIDE RAILS X 2UP. WILL ENDORSE TO AM NURSE FOR JORDAN.
[2018-02-22 07:09] LABS: BASOPHILS % (AUTO) 0.5 % (0.0-2.0); EOSINOPHILS % (AUTO) 1.5 % (0.0-6.0); HEMATOCRIT 29 % (39-51); HEMOGLOBIN 9.6 g/dL (13.5-17.5); LYMPHOCYTES # (AUTO) 1.5 /CMM (0.8-4.8); LYMPHOCYTES % (AUTO) 19.4 % (20.0-44.0); MEAN CORPUSCULAR HGB CONC 33 g/dl (31.0-36.0); MEAN CORPUSCULAR VOLUME 86 fL (80-96); MONOCYTES # (AUTO) 0.6 /CMM (0.1-1.30); MONOCYTES % (AUTO) 7.9 % (2.0-12.0); NEUTROPHILS # (AUTO) 5.4 /CMM (1.8-8.9); NEUTROPHILS % (AUTO) 70.7 % (43.0-81.0); PLATELET COUNT (AUTO) 320 /CMM (150-450); RDW COEFFICIENT OF VARIATION 16.6 (11.5-15.0); RED BLOOD CELL COUNT(AUTO) 3.33 MIL/uL (4.5-6.0); WHITE BLOOD COUNT (AUTO) 7.7 K/uL (4.3-11.0)
--- NOTE | 2018-02-22 07:20 | NUR ---
MS RN OPENING NOTES: RECEIVED PT AWAKE IN BED IN NO ACUTE SIGNS OF DISTRESS. A/O X1-2. ABLE TO COMMUNICATE VERBALLY, DENIES PAIN OR DISCOMFORTS AT THIS TIME. ON 02 @ 4LPM VIA NC, TOLERATING WELL WITH NO SOB NOTED. IV ACCESS ON CARMELITA #22G INTACT AND PATENT, 1/2 NS @100ML/HR INFUSING, NO SIGNS OF INFILTRATION NOTED. JOSEPH CATHETER IN PLACE AND ATTACHED TO DRAINAGE BAG WITH CLEAR YELLOW URINE DRAINING. BED IN LOW/LOCKED POSITION WITH SIDE RAILS UP X2. CALL LIGHT WITHIN PT'S REACH. WILL CONTINUE TO MONITOR PT.
[2018-02-22 07:49] LABS: CALCIUM, SERUM 8.4 mg/dL (8.5-10.1); CARBON DIOXIDE 27 mmol/L (21-32); CHLORIDE 104 mmol/L (98-107); CREATININE 0.8 mg/dL (0.6-1.3); GLUCOSE 105 mg/dL (74-106); MAGNESIUM 2.1 mg/dL (1.8-2.4); PHOSPHORUS 3.1 mg/dL (2.5-4.9); SODIUM SERUM 140 mmol/L (136-145); UREA NITROGEN, BLOOD 11 mg/dL (7-18)
[2018-02-22 08:00] VITALS: BP 172/86
[2018-02-22] MEDS: MEMANTINE HCL 5 MG TABLET PO SCH ×2 (08:28→16:54)
[2018-02-22] MEDS: ASPIRIN 81 MG TAB.CHEW PO SCH (08:29)
[2018-02-22] MEDS: FINASTERIDE (5 MG) 5 MG TABLET PO SCH (08:29)
[2018-02-22] MEDS: LINAGLIPTIN 5 MG TABLET PO SCH (08:29)
[2018-02-22] MEDS: ENTACAPONE 200 MG TABLET PO SCH ×3 (08:29→16:55)
[2018-02-22] MEDS: CARBIDOPA/LEVODOPA 25/100 MG 1 UDTAB PO SCH ×3 (08:29→16:54)
[2018-02-22] MEDS: ENOXAPARIN SODIUM 40 MG/0.4 ML DISP.SYRIN SQ SCH (08:30)
[2018-02-22] MEDS: BOOST GLUCOSE CONTROL VANILLA 237 ML BOX PO SCH ×2 (08:40→16:56)
--- NOTE | 2018-02-22 09:50 | NUR ---
WOUND CARE CONSULT: PT FOLLOWED BY SURGICAL TEAM FOR WOUNDS. DEFER TO SURGICAL TEAM FOR WOUND TREATMENT PLAN. PT ON BERHANE ISOFLEX LOW AIRLOSS BED. ALL SKIN PROTECTION AND PRESSURE ULCER PREVENTION MEASURES IN PLACE AND DISCUSSED WITH NURSING STAFF.
--- NOTE | 2018-02-22 11:02 | NUR ---
RN NOTES PT SEEN BY DR CHAMPION WITH ORDER TO DISCONTINUE JOSEPH CATHETER. ORDERED CARRIED OUT, JOSEPH REMOVED WITH NO BLEEDING NOTED. WILL MONITOR PT FOR VOIDING.
[2018-02-22] MEDS: MEROPENEM 1 G in IV NS 0.9% 100 ML IV SCH ×2 (11:12→21:08)
--- NOTE | 2018-02-22 14:27 | NUR ---
RN NOTES RECEIVED CALL FROM LAB THAT PT'S BLOOD CULTURE PRELIMINARY RESULTS ONE BOTTLE OF GRAM POSITIVE RODS SEEN ON GRAM STAIN. PT ON ABX THERAPY AT THIS TIME. WILL CONTINUE TO MONITOR
[2018-02-22 16:00] VITALS: BP 132/69
[2018-02-22] MEDS: FERROUS SULFATE (325 MG) 325 MG/TAB TABLET PO SCH (16:55)
[2018-02-22] MEDS: LACTOBACILLUS RHAMNOSUS GG 1 EACH CAP.SPRINK PO SCH (16:55)
--- NOTE | 2018-02-22 18:38 | NUR ---
MS RN CLOSING NOTES: PT AWAKE AND LYING @ MODERATE HIGH BACKREST IN BED. A/O X1-2. ABLE TO COMMUNICATE VERBALLY WITH EPISODE OF FORGETFULNESS. ON SUPPLEMENTAL 02 @ 4LPM VIA NC, TOLERATING WELL WITH NO SOB NOTED. IV ACCESS ON CARMELITA #22G INTACT AND PATENT, 1/2 NS @100ML/HR INFUSING WELL, NO SIGNS OF INFILTRATION NOTED. S/P JOSEPH CATHETER REMOVED THIS MORNING, PT NOTED VOIDING ON DIAPER WITH CLEAR YELLOW URINE. HOB KEPT ELEVATED. BED IN LOW/LOCKED POSITION WITH SIDE RAILS UP X2. CALL LIGHT WITHIN PT'S REACH. PT TURNED AND REPOSITIONED IN BED Q 2HRS AND PRN. ALL NEEDS AND CARE PROVIDED WELL. WILL ENDORSED TO FIBERGLASS LAMINATOR NURSE FOR JORDAN. .
--- NOTE | 2018-02-22 19:42 | NUR ---
RN OPENING NOTES PT RESTING IN BED IN HIGH FOWLERS POSITION. NO COMPLAINTS OF PAIN, SOB OR DISTRESS AT THIS TIME. PT IS A/O X1-2. PT IS ON 4L 02 VIA NASAL CANNULA. PT HAS A RIGHT UPPER ARM #22 RUNNING 1/5NS @50ML/HR, PT TOLERATING FLUID WELL. SAFETY PRECAUTIONS IN PLACE. BED IN LOW, LOCKED POSITION, X2 SIDE RAILS UP, AND CALL LIGHT WITHIN REACH. WILL CONTINUE TO MONITOR.
[2018-02-22 20:00] VITALS: BP 118/87
[2018-02-22] MEDS: MUPIROCIN OINT 2% 22 GM TUBE SCH (21:09)
[2018-02-22] MEDS: DONEPEZIL 5 MG TABLET PO SCH (21:12)
[2018-02-22] MEDS: MIRTAZAPINE 15 MG TABLET PO SCH (21:13)
--- NOTE | 2018-02-22 22:10 | NUR ---
RN NOTES ACCIDENTLY PULLED ONE ARICEPT TABLET LESS THAN WAS ORDERED. WILL PULL SECOND TABLET AND ADMINISTER THE FULL DOSE ORDERED. FIXED THE COUNT IN THE OMNICELL.
[2018-02-23] MEDS: MEROPENEM 1 G in IV NS 0.9% 100 ML IV SCH ×3 (04:18→20:31)
--- NOTE | 2018-02-23 06:50 | NUR ---
RN CLOSING NOTES PT RESTING IN BED IN HIGH FOWLERS POSITION. NO APPARENT S/S OF PAIN, SOB OR DISTRESS OVERNIGHT. PT IS A/O X1-2. PT IS ON 4L 02 VIA NASAL CANNULA. PT HAS A RIGHT UPPER ARM #22 RUNNING 1/5NS @50ML/HR, PT TOLERATING FLUID WELL. SAFETY PRECAUTIONS IN PLACE. BED IN LOW, LOCKED POSITION, X2 SIDE RAILS UP, AND CALL LIGHT WITHIN REACH. WILL ENDORSE TO DAY SHIFT NURSE FOR CONTINUITY OF CARE.
--- NOTE | 2018-02-23 07:45 | NUR ---
RN OPENING NOTES Patient found sleeping comfortably in bed but arouses easily to name; patient oriented x2. Vital signs WNL, no SOB or difficulty breathing, no signs or symptoms of acute distress. Patient on 4L O2 NC. Peripheral right upper arm IV running 1/2 NS at 50 mL/hr. Bed is in low/locked position, 2 side rails up, and call schuster is within reach. Will continue to monitor.
[2018-02-23 08:00] VITALS: BP 156/76
[2018-02-23 08:19] LABS: CALCIUM, SERUM 8.5 mg/dL (8.5-10.1); CARBON DIOXIDE 28 mmol/L (21-32); CHLORIDE 107 mmol/L (98-107); CREATININE 0.7 mg/dL (0.6-1.3); GLUCOSE 84 mg/dL (74-106); POTASSIUM 4.2 mmol/L (3.5-5.1); SODIUM SERUM 143 mmol/L (136-145); UREA NITROGEN, BLOOD 7 mg/dL (7-18)
[2018-02-23] MEDS: CARBIDOPA/LEVODOPA 25/100 MG 1 UDTAB PO SCH ×3 (08:36→17:31)
[2018-02-23] MEDS: LINAGLIPTIN 5 MG TABLET PO SCH (08:36)
[2018-02-23] MEDS: ASPIRIN 81 MG TAB.CHEW PO SCH (08:36)
[2018-02-23] MEDS: MEMANTINE HCL 5 MG TABLET PO SCH ×2 (08:36→17:31)
[2018-02-23] MEDS: LACTOBACILLUS RHAMNOSUS GG 1 EACH CAP.SPRINK PO SCH ×2 (08:36→17:31)
[2018-02-23] MEDS: BLOOD SUGAR DIAGNOSTIC 1 EACH STRIP IN SCH ×4 (08:36→22:58)
[2018-02-23] MEDS: FINASTERIDE (5 MG) 5 MG TABLET PO SCH (08:36)
[2018-02-23] MEDS: BOOST GLUCOSE CONTROL VANILLA 237 ML BOX PO SCH ×2 (08:36→17:33)
[2018-02-23] MEDS: HYDROGEL DRESSING 90 GM TUBE TP SCH (08:37)
[2018-02-23] MEDS: MUPIROCIN OINT 2% 22 GM TUBE SCH ×2 (08:38→20:33)
[2018-02-23] MEDS: ENTACAPONE 200 MG TABLET PO SCH ×3 (08:38→17:31)
[2018-02-23] MEDS: ENOXAPARIN SODIUM 40 MG/0.4 ML DISP.SYRIN SQ SCH (08:38)
[2018-02-23] MEDS ORDERED: BARIUM SULFATE 148 GM SUSP.RECON PO ONE (09:07)
[2018-02-23] MEDS ORDERED: BARIUM SULFATE 240 ML ORAL.SUSP PO ONE (09:07)
[2018-02-23] MEDS: FERROUS SULFATE (325 MG) 325 MG/TAB TABLET PO SCH (17:31)
[2018-02-23] MEDS: IV 1/2NS 1000 ML 1,000 ML IV PRN (17:34)
--- NOTE | 2018-02-23 18:59 | NUR ---
MS RN CLOSING NOTES Patient is resting comfortably in bed AA&Ox2 with no signs or symptoms of acute pain/distress. All prescribed medications and treatments have been carried out. Peripheral right upper arm IV is running 1/2 NS at 50 mL/hr. Vital signs WNL, no SOB, patient on room air. Bed is in low/locked position with call schuster in reach. type inspector RN will continue care and monitoring.
--- NOTE | 2018-02-23 19:35 | NUR ---
MS RN OPENING NOTES RECEIVED PT IN BED ASLEEP, ON O2 VIA NC AT 4L/MIN.RESPIRATIONS EVEN, UNLABORED, NO APPARENT DISTRESS NOTED.NO S/SX OF PAIN OR DISCOMFORT NOTED. IV SITE CARMELITA INTACT, PATENT.CALL LIGHT WITHIN REACH. BED LOCKED IN LOWEST POSITION. KEPT CLEAN AND COMFORTABLE.ATTENDED ALL NEEDS. WILL CONTINUE TO MONITOR ACCORDINGLY.
--- NOTE | 2018-02-23 19:40 | NUR ---
MS RN OPENING NOTES RECEIVED PT IN BED ALERT, AWAKE, VERBALLY RESPONSIVE, ON ROOM AIR, RESPIRATIONS EVEN, UNLABORED, NO APPARENT DISTRESS NOTED. DENIES ANY PAIN OR DISCOMFORT AT THIS TIME. IV SITE RT FA INTACT, PATENT. CALL LIGHT WITHIN REACH. BED LOCKED IN LOWEST POSITION. ATTENDED ALL NEEDS. WILL CONTINUE TO MONITOR ACCORDINGLY.
[2018-02-23 20:00] VITALS: BP 152/72
[2018-02-23 22:00] VITALS: BP 136/78
[2018-02-23] MEDS: DONEPEZIL 5 MG TABLET PO SCH (22:57)
[2018-02-23] MEDS: MIRTAZAPINE 15 MG TABLET PO SCH (22:58)
[2018-02-24] MEDS: MEROPENEM 1 G in IV NS 0.9% 100 ML IV SCH ×2 (04:44→12:16)
[2018-02-24] MEDS: BLOOD SUGAR DIAGNOSTIC 1 EACH STRIP IN SCH ×3 (05:48→17:24)
--- NOTE | 2018-02-24 07:03 | NUR ---
MS RN CLOSING NOTES PT IN BED RESTING COMFORTABLY, NO APPARENT DISTRESS NOTED. NO S/SX OF PAIN OR DISCOMFORT NOTED. KEPT CLEAN AND COMFORTABLE, ATTENDED ALL NEEDS. WILL CONTINUE TO MONITOR ACCORDINGLY.
--- NOTE | 2018-02-24 07:05 | NUR ---
REPORT RECEIVED AT THE BEDSIDE. PATIENT IS RESTING COMFORTABLY IN BED. NO SOB OR DISTRESS NOTED AT THIS TIME. PATIENT DENIES PAIN. BED IN A LOW POSITION, CALL LIGHT WITHIN PATIENT REACH, WILL CONTINUE TO MONITOR.
[2018-02-24 08:00] VITALS: BP 163/97
[2018-02-24] MEDS: BOOST GLUCOSE CONTROL VANILLA 237 ML BOX PO SCH ×2 (08:00→17:00)
[2018-02-24] MEDS: MUPIROCIN OINT 2% 22 GM TUBE SCH (08:58)
[2018-02-24] MEDS: LACTOBACILLUS RHAMNOSUS GG 1 EACH CAP.SPRINK PO SCH ×2 (08:58→17:24)
[2018-02-24] MEDS: ASPIRIN 81 MG TAB.CHEW PO SCH (08:59)
[2018-02-24] MEDS: CARBIDOPA/LEVODOPA 25/100 MG 1 UDTAB PO SCH ×3 (08:59→17:24)
[2018-02-24] MEDS: HYDROGEL DRESSING 90 GM TUBE TP SCH (08:59)
[2018-02-24] MEDS: MEMANTINE HCL 5 MG TABLET PO SCH ×2 (08:59→17:24)
[2018-02-24] MEDS: FINASTERIDE (5 MG) 5 MG TABLET PO SCH (08:59)
[2018-02-24] MEDS: ENTACAPONE 200 MG TABLET PO SCH ×3 (08:59→17:24)
[2018-02-24] MEDS: LINAGLIPTIN 5 MG TABLET PO SCH (08:59)
[2018-02-24] MEDS: ENOXAPARIN SODIUM 40 MG/0.4 ML DISP.SYRIN SQ SCH (09:00)
--- NOTE | 2018-02-24 10:14 | NUR ---
PT REFUSING BLOOD DRAW. SCREAMING NO AND HITTING STAFF. EXPLAINED THE IMPORTANCE TO THE PATIENT, BUT STILL REFUSING. WILL INFORM MD. Addendum: 02/24/18 at 1017 by DAVID HARRIS RN DISREGARD NOTE. DOCUMENTED ON WRONG PT.
--- NOTE | 2018-02-24 10:17 | NUR ---
PT REFUSING BLOOD DRAW. SCREAMING NO AND HITTING STAFF. EXPLAINED THE IMPORTANCE TO THE PATIENT, BUT STILL REFUSING. WILL INFORM MD.
[2018-02-24 10:41] LABS: CALCIUM, SERUM 8.9 mg/dL (8.5-10.1); CARBON DIOXIDE 25 mmol/L (21-32); CHLORIDE 102 mmol/L (98-107); CREATININE 0.6 mg/dL (0.6-1.3); GLUCOSE 116 mg/dL (74-106); MAGNESIUM 1.7 mg/dL (1.8-2.4); POTASSIUM 3.8 mmol/L (3.5-5.1); SODIUM SERUM 138 mmol/L (136-145); UREA NITROGEN, BLOOD 7 mg/dL (7-18)
[2018-02-24] MEDS ORDERED: Magnesium 1GM/D5W 100ML PREMIX 100 ML IV SCH (11:30)
[2018-02-24] MEDS: INSULIN REGULAR, HUMAN 100 UNIT/ML 3 ML VIAL SQ PRN ×2 (12:16→17:24)
[2018-02-24] MEDS: Magnesium 1GM/D5W 100ML PREMIX 100 ML IV SCH ×2 (12:16→13:43)
[2018-02-24 14:29] LABS: BASOPHILS % (AUTO) 0.4 % (0.0-2.0); EOSINOPHILS % (AUTO) 1.4 % (0.0-6.0); HEMATOCRIT 28 % (39-51); HEMOGLOBIN 9.4 g/dL (13.5-17.5); LYMPHOCYTES # (AUTO) 1.6 /CMM (0.8-4.8); LYMPHOCYTES % (AUTO) 28.1 % (20.0-44.0); MEAN CORPUSCULAR HGB CONC 33 g/dl (31.0-36.0); MEAN CORPUSCULAR VOLUME 85 fL (80-96); MONOCYTES # (AUTO) 0.6 /CMM (0.1-1.30); MONOCYTES % (AUTO) 11.2 % (2.0-12.0); NEUTROPHILS # (AUTO) 3.3 /CMM (1.8-8.9); NEUTROPHILS % (AUTO) 58.9 % (43.0-81.0); PLATELET COUNT (AUTO) 408 /CMM (150-450); RDW COEFFICIENT OF VARIATION 16.4 (11.5-15.0); RED BLOOD CELL COUNT(AUTO) 3.34 MIL/uL (4.5-6.0); WHITE BLOOD COUNT (AUTO) 5.7 K/uL (4.3-11.0)
[2018-02-24 16:00] VITALS: BP 82/31
[2018-02-24] MEDS: FERROUS SULFATE (325 MG) 325 MG/TAB TABLET PO SCH (17:24)
--- NOTE | 2018-02-24 17:24 | NUR ---
HOLDING INSULIN PATIENT IS REFUSING TO EAT. PATIENT IS SENSITIVE TO INSULIN AND WILL BECOME HYPOGLYCEMIC IF INSULIN IS ADMINISTERED AND HE DOES NOT EAT. BLOOD SUGAR IS 158. Addendum: 02/24/18 at 1727 by DAVID HARRIS RN PT TOOK EVENING MEDS WITH A SCOOP OF APPLESAUCE, BUT STATES "NO MORE." HITTING AT STAFF WHEN ATTEMPTING TO FEED PT.
--- NOTE | 2018-02-24 18:06 | NUR ---
DISCHARGE INSTRUCTIONS GIVEN TO THE FACILITY. ALL PAPERWORK SIGNED BY TWO RNS PATIENT IS CONFUSED AND UNABLE. NO BELONGINGS NOTED. PATIENT IS REFUSING ALL VACCINES, "I DON'T NEED OR WANT THAT STUFF." ALL PICTURES TAKEN AND PLACED IN THE CHART. PATIENT CLEANED AND DIAPER CHANGED, MEPILEX CHANGED. PATIENT LEFT IN STABLE CONDITION, VIA GOURNEY, [facility] REPORT CALLED TO SIOBHAN OLIVARES.
== END 2018-02-24 18:23 | DRG 871 ==
LOC: ER 18:34 → TELE 20:58 → MED 02-20 10:09
PROVIDERS: ADMIT Legal Medicine; ATTEND Legal Medicine
DX: A41.9 Sepsis, unspecified organism (principal); N17.0 Acute kidney failure with tubular necrosis; E43 Unspecified severe protein-calorie malnutrition; J15.6 Pneumonia due to other Gram-negative bacteria; G93.41 Metabolic encephalopathy; J15.9 Unspecified bacterial pneumonia; L89.153 Pressure ulcer of sacral region, stage 3; E11.51 Type 2 diabetes mellitus with diabetic peripheral angiopathy without gangrene; N39.0 Urinary tract infection, site not specified; E87.0 Hyperosmolality and hypernatremia; E87.2 Acidosis; Z68.1 Body mass index [BMI] 19.9 or less, adult; B96.20 Unspecified Escherichia coli [E. coli] as the cause of diseases classified elsewhere; D63.8 Anemia in other chronic diseases classified elsewhere; E78.5 Hyperlipidemia, unspecified; G20 Parkinson's disease; I10 Essential (primary) hypertension; I25.10 Atherosclerotic heart disease of native coronary artery without angina pectoris; N40.1 Benign prostatic hyperplasia with lower urinary tract symptoms; M62.50 Muscle wasting and atrophy, not elsewhere classified, unspecified site; E88.09 Other disorders of plasma-protein metabolism, not elsewhere classified; Z16.12 Extended spectrum beta lactamase (ESBL) resistance; L98.8 Other specified disorders of the skin and subcutaneous tissue; L89.611 Pressure ulcer of right heel, stage 1; Z79.84 Long term (current) use of oral hypoglycemic drugs; M19.90 Unspecified osteoarthritis, unspecified site; F02.80 Dementia in other diseases classified elsewhere, unspecified severity, without behavioral disturbance, psychotic disturbance, mood disturbance, and anxiety; F20.9 Schizophrenia, unspecified; H40.9 Unspecified glaucoma; I25.2 Old myocardial infarction
CPT/HCPCS: 36415; 71045-TC; 74230-TC; 80048-TC; 80053-TC; 80061-TC; 80076-TC; 80202-TC; 81000-TC; 82728-TC; 82962-TC; 83540-TC; 83605-TC; 83735-TC; 84100-TC; 84443-TC; 84484-TC; 85025-TC; 85045-TC; 85730-TC; 87040-TC; 87081-TC; 87086-TC; 87186-TC; 92526; 92611-TC; 93307-TC; 94799-TC; A4216; A4606; A6248; J0692; J0696; J1650; J1815; J2185; J2543; J3370; J3475; J3490; J7030; J7060; Z7610